=== PATIENT | male | born 1935 | race Caucasian/White ===

== ENCOUNTER 2016-10-05 11:52 | Emergency (ER) | payer MEDICARE ==
--- NOTE | 2016-10-05 14:43 | UC ---
David Koroma Alok, scribed for Navi Bishop MD on 10/05/16 at 1314 . Lower Extremity/Ankle HPI - HPI Summary HPI Summary: 80M presents to the [facility] with ecchymosis and edema on the back on his left knee. Pt states he fell 5 days ago at the table and hit the back of his knee on a chair while getting up. Pt notes left knee tenderness since yesterday. PMHx includes CAD, HTN, and stents. Pt has been taking Brilinta since Apr 2016. Pt also takes aspirin. Pt drinks ETOH daily. - History of Current Complaint Chief Complaint: UCLowerExtremity Stated Complaint: BRUISING,BLOOD THINNER Time Seen by Provider: 10/05/16 12:59 Hx Obtained From: Patient Onset/Duration: Gradual Onset, Lasting Days, Still Present Severity Initially: Moderate Severity Currently: Moderate Pain Intensity: 2 Pain Scale Used: 0-10 Numeric Alleviating Factor(s): Nothing - Allergies/Home Medications Allergies/Adverse Reactions: Allergies Allergy/AdvReac Type Severity Reaction Status Date / Time No Known Allergies Allergy Verified 10/05/16 12:44 Home Medications: Home Medications Alfuzosin HCl [Alfuzosin HCl ER] 10 mg PO DAILY 10/05/16 [History Confirmed ] Amlodipine Besylate [Norvasc 2.5 mg tab] 2.5 mg PO DAILY 10/05/16 [History Confirmed 10/05/16] Benzonatate [Benzonatate 200 MG CAP] 200 mg PO TID PRN 10/05/16 [History Confirmed 10/05/16] Coenzyme Q10 (Ubidecarenone) [Coq-10] 200 mg PO DAILY 10/05/16 [History Confirmed 10/05/16] Rosuvastatin Calcium [Crestor] 5 mg PO DAILY 10/05/16 [History Confirmed ] guaiFENesin/CODIEN 100MG-10MG* [Robitussin AC 100Mg-10Mg*] 5 ml PO QID PRN 10/05 [History Confirmed 10/05/16] PMH/Surg Hx/FS Hx/Imm Hx Endocrine History Of: Denies: Diabetes, Thyroid Disease, Hyperthyroidism, Hypothyroidism, Dyslipidemia Cardiovascular History Of: Reports: Cardiac Disorders - cardiac stents 04/27, Hypertension Denies: Pacemaker/ICD, Myocardial Infarction, Congestive Heart Failure, Atrial Fibrillation, Deep Vein Thrombosis, Bleeding Disorders Respiratory History Of: Denies: COPD, Asthma, Bronchitis, Pneumonia, Pulmonary Embolism GI/ History Of: Reports: Gastroesophageal Reflux Denies: Ulcer, Gastrointestinal Bleed, Gall Bladder Disease, Kidney Stones, Diverticulitis, Renal Disease, Urosepsis Neurological History Of: Denies: TIA, CVA, Dementia, Seizures, Migraine Psychological History Of: Reports: Anxiety - ON MEDICATION FOR Denies: Depression, Bipolar Disorder, Schizophrenia, Post Traumatic Stress Disorder Cancer History Of: Denies: Lung Cancer, Colorectal Cancer, Breast Cancer, Prostate Cancer, Cervical Cancer Other History Of: Anticoagulant Therapy - 81 mg aspirin every three days. Negative For: HIV, Hepatitis B, Hepatitis C - Surgical History Surgical History: Yes Surgery Procedure, Year, and Place: CARPAL TUNNEL RIGHT- [facility]- [facility] CARPAL TUNNEL LEFT 2011 BILATERAL CATARACT REMOVAL-([facility] SN60WF -MRI SAFE-3T)[facility] TONSILECTOMY,CYST REMOVED FROM BLADDER, L hip replacement - Family History Known Family History: Positive: Hypertension - Social History Occupation: Employed Full-time Alcohol Use: Daily Alcohol Amount: 1 beer Substance Use Type: None Substance Use Comment - Amount & Last Used: 1 BEER/DAY Smoking Status (MU): Former Smoker Amount Used/How Often: 1-2 PPD X 25 YEARS Have You Smoked in the Last Year: No When Did the Patient Quit Smoking/Using Tobacco: 30 YEARS AGO - Immunization History Most Recent Influenza Vaccination: 2016 Most Recent Tetanus Shot: within 3 years Most Recent Pneumonia Vaccination: within 3 years Review of Systems Constitutional: Negative Skin: Bruising - back of left knee Musculoskeletal: Edema - back of left knee, Other: - back of left knee tenderness All Other Systems Reviewed And Are Negative: Yes Physical Exam Triage Information Reviewed: Yes Appearance: Well-Appearing, No Pain Distress, Well-Nourished Vital Signs: Initial Vital Signs Temp 98.1 F 10/05/16 12:51 Pulse 58 10/05/16 12:51 Resp 16 10/05/16 12:51 BP 131/62 10/05/16 12:51 Pulse Ox 98 10/05/16 12:51 ENT: Positive: Normal ENT inspection Neck: Positive: Nontender Respiratory: Positive: Lungs clear, Normal breath sounds Cardiovascular: Positive: RRR, Brisk Capillary Refill Musculoskeletal: Positive: Strength Intact, ROM Intact, Other: - minimal swelling/bruising medial left popliteal area and left lower thigh area. No cellulitis, no knee effusion. Neurological: Positive: Alert Psychological: Positive: Age Appropriate Behavior Skin: Negative: rashes, breakdown Diagnostics - Laboratory Diagnostic Studies Completed/Ordered: Left Lower Extremity Veins US - Results pending Lower Extremity Course/Dx - Course Course Of Treatment: 80 yr old male with likely small hematoma. Venous doppler ordered. - Differential Dx/Diagnosis Provider Diagnoses: hematoma. Contusion Discharge - Discharge Plan Condition: Good Disposition: OTHER Discharge Disposition Comment: signed out to Dr Loza with Venous Doppler pending and final dispo Patient Education Materials: Hematoma (ED), Contusion in Adults (ED) Referrals: Garrick Urrutia MD [Primary Care Provider] - The documentation as recorded by the David galeas Alok accurately reflects the service I personally performed and the decisions made by Edna higuera Walter, MD.
--- NOTE | 2016-10-05 15:01 | RAD ---
HISTORY: Fall, bruising of left medial thigh, pain and edema COMPARISONS: None relevant TECHNIQUE: Multiple transverse and longitudinal ultrasound images were obtained of the left lower extremity from the level of the common femoral vein inferiorly through to the infrapopliteal veins using grayscale, color Doppler, and spectral Doppler imaging with and without compression and with augmentation. Comparison images were obtained of the contralateral common femoral vein. FINDINGS: VEINS: The venous system of the left lower extremity is compressible throughout its course, with normal flow on color Doppler imaging and normal response to augmentation on spectral Doppler imaging. SOFT TISSUES: There is no appreciable sonographic abnormality in the area of bruising. OTHER FINDINGS: None. IMPRESSION: NO LEFT LOWER EXTREMITY DEEP VEIN THROMBOSIS
[2016-10-05 15:25] VITALS: BP 126/69
== END 2016-10-05 15:32 | disposition home or self-care (01) ==
LOC: UCEAST 11:52
DX: S80.02XA Contusion of left knee, initial encounter (principal); W18.00XA Striking against unspecified object with subsequent fall, initial encounter; Y93.9 Activity, unspecified; Y92.9 Unspecified place or not applicable; I10 Essential (primary) hypertension; K21.9 Gastro-esophageal reflux disease without esophagitis; F41.9 Anxiety disorder, unspecified; Z79.82 Long term (current) use of aspirin; Z95.5 Presence of coronary angioplasty implant and graft; Z98.42 Cataract extraction status, left eye; Z98.41 Cataract extraction status, right eye; Z96.642 Presence of left artificial hip joint; Z87.891 Personal history of nicotine dependence
CPT/HCPCS: 99212; G0463

== ENCOUNTER 2017-02-15 08:58 | Emergency (ER) | payer MEDICARE ==
[2017-02-15 09:17] VITALS: BP 185/81
--- NOTE | 2017-02-15 09:32 | UC ---
Dizzy HPI HPI Summary: ONSET OF LIGHTHEADEDNESS LAST NIGHT AFTER DINNER. FEELS LIKE HE CAN'T GET HIS FEET WHERE THEY NEED TO BE. BALANCE IS OFF. HAD SOME NAUSEA BUT DENIES FEVER, SOB, CHEST PAIN, SWEATS. NO SPINNING SENSATION. - History Of Current Complaint Chief Complaint: UCDizziness Stated Complaint: DIZZINESS Time Seen by Provider: 02/15/17 09:00 Hx Obtained From: Patient, Family/Communication Specialist - Onset/Duration: Gradual Onset, Lasting Hours, Still Present Timing: Constant Severity Initially: Moderate Severity Currently: Moderate Pain Intensity: 0 Pain Scale Used: 0-10 Numeric Character: Lightheaded Aggravating Factor(s): Nothing Alleviating Factor(s): Nothing Associated Signs And Symptoms: Positive: Nausea, Unsteady Gait. Negative: Diaphoresis, Chest Pain, SOB - Allergies/Home Medications Allergies/Adverse Reactions: Allergies Allergy/AdvReac Type Severity Reaction Status Date / Time No Known Allergies Allergy Verified 02/15/17 09:08 Home Medications: Home Medications Iron 325 mg PO BID 02/15/17 [History Confirmed 02/15/17] PMH/Surg Hx/FS Hx/Imm Hx Cardiovascular History: Cardiac Disease, Hypertension Other History Of: Anticoagulant Therapy - 81 mg aspirin every three days. Negative For: HIV, Hepatitis B, Hepatitis C - Surgical History Surgical History: Yes Surgery Procedure, Year, and Place: CARPAL TUNNEL RIGHT- [facility]- [facility] CARPAL TUNNEL LEFT 2011 BILATERAL CATARACT REMOVAL-([facility] SN60WF -MRI SAFE-3T)[facility] TONSILECTOMY,CYST REMOVED FROM BLADDER, L hip replacement - Family History Known Family History: Positive: Hypertension - Social History Alcohol Use: Daily Alcohol Amount: 1 beer Substance Use Type: None Substance Use Comment - Amount & Last Used: 1 BEER/DAY Smoking Status (MU): Former Smoker Amount Used/How Often: 1-2 PPD X 25 YEARS Have You Smoked in the Last Year: No When Did the Patient Quit Smoking/Using Tobacco: 30 YEARS AGO - Immunization History Most Recent Influenza Vaccination: 2016 Most Recent Tetanus Shot: within 3 years Most Recent Pneumonia Vaccination: within 3 years Review of Systems Constitutional: Negative ENT: Negative Respiratory: Negative Cardiovascular: Negative Gastrointestinal: Nausea Neurological: Other - LIGHTHEADED All Other Systems Reviewed And Are Negative: Yes Physical Exam Triage Information Reviewed: Yes Appearance: Well-Appearing, No Pain Distress, Well-Nourished Vital Signs: Initial Vital Signs Temp 97.2 F 02/15/17 09:01 Pulse 68 02/15/17 09:01 Resp 18 02/15/17 09:01 BP 185/81 02/15/17 09:01 Pulse Ox 97 02/15/17 09:01 Vital Signs Reviewed: Yes Eyes: Positive: Conjunctiva Clear ENT: Positive: Hearing grossly normal Neck: Positive: Supple, Nontender, No Lymphadenopathy Respiratory Exam: Normal Cardiovascular Exam: Normal Abdomen Description: Positive: Soft Musculoskeletal: Positive: No Edema Neurological: Positive: Alert Psychological: Positive: Age Appropriate Behavior Skin: Negative: rashes Diagnostics - EKG Cardiac Rate: NL - 63BPM Cardiac Rhythm: Sinus: Normal Ectopy: None ST Segment: Normal Dizzy Course/Dx - Course Course Of Treatment: TO [facility] BY PRIVATE CAR - Differential Dx/Diagnosis Provider Diagnoses: LIGHTHEADED Discharge - Discharge Plan Condition: Stable Disposition: OTHER Discharge Disposition Comment: TO [facility] BY PRIVATE CAR Patient Education Materials: Lightheadedness (ED) Referrals: Garrick Urrutia MD [Primary Care Provider] - If Needed Additional Instructions: GO DIRECTLY TO THE [facility] FROM HERE FOR FURTHER EVALUATION.
== END 2017-02-15 09:29 ==
LOC: UCEAST 08:58
DX: R42 Dizziness and giddiness (principal); Z87.891 Personal history of nicotine dependence
CPT/HCPCS: 93005; 99212; G0463

== ENCOUNTER 2017-02-15 09:49 | Observation (INO) | payer MEDICARE ==
[2017-02-15 11:55] LABS: Hematocrit 33 % (42-52); Hemoglobin 10.9 g/dl (14.0-18.0); Mean Corpuscular HGB Conc 33 g/dl (31-36); Mean Corpuscular Hemoglobin 30 pg (27-31); Mean Corpuscular Volume 90 fL (80-94); Mean Platelet Volume 10 um3 (7.4-10.4); Red Blood Count 3.63 10^6/ul (4.0-5.4); Red Cell Distribution Width 14 % (10.5-15); White Blood Count 5.7 10^3/ul (3.5-10.8)
[2017-02-15 12:06] LABS: Urine Bilirubin Negative (Negative); Urine Glucose Negative (Negative); Urine Nitrite Negative (Negative)
[2017-02-15 12:15] LABS: Albumin 3.8 g/dL (3.2-5.2); BUN/Creatinine Ratio 23.9 (8-20); Calcium 9.4 mg/dL (8.6-10.3); EGFR African American 76.8 (>60); EGFR Non-African American 59.7 (>60); Globulin 2.4 g/dL (2-4); Potassium 4.6 mmol/L (3.5-5.0); Total Bilirubin 0.4 mg/dL (0.2-1.0); Total Protein 6.2 g/dL (6.4-8.9)
[2017-02-15 12:16] LABS: Troponin I 0.01 ng/mL (<0.04)
--- NOTE | 2017-02-15 12:21 | RAD ---
Indication: Lightheaded, unsteady gait, hypertension. Feels intoxicated. Comparison: No relevant prior exams available on the [facility] PACS for comparison. Technique: Noncontrast CT vertex of skull through foramen magnum. Report: 2.3 x 1.7 cm extra-axial water density lesion at the anterior inferior RIGHT posterior fossa consistent with an arachnoid cyst. Only mild associated mass effect on the RIGHT inferior cerebellar hemisphere. No additional extra or intra-axial lesions evident. Negative for sam matter white matter obscuration or mass effect. Negative for intra or extra-axial hemorrhage. Unremarkable cerebral sulci and ventricles. Negative for effacement of the basal cisterns. Unremarkable orbital contents. No calvarial or skull base lesions evident. Clear visualized paranasal sinuses and mastoid air spaces. Unremarkable scalp. IMPRESSION: 1. 2.3 x 1.7 cm extra-axial water density lesion at the anterior inferior RIGHT posterior fossa consistent with an arachnoid cyst. Only mild associated mass effect on the RIGHT inferior cerebellar hemisphere. 2. No acute intracranial process evident.
[2017-02-15] MEDS ORDERED: Aspirin TAB* 325 MG PO ONE (14:11)
--- NOTE | 2017-02-15 14:47 | ED ---
Fabrizio Koroma Angela, scribed for Navi Bishop MD on 02/15/17 at 1052 . Hypertension - HPI Summary HPI Summary: This pt is a 81 y/o male accompanied by partner presenting to [facility] referred by [facility] c/o unsteady gait since noon yesterday (almost 24 hours now). Pt reports he is off balance while ambulating with associated symptoms of light- headedness. Pt states he does not go to one side more than the other. He denies room spinning. Pt denies visual changes, changes in speech, decreased hearing, ringing in ear, weakness or numbness in LE or UE, headache, ear pain, chest pain , SOB, abd pain, neck pain, back pain. Per partner, when laying down last night pt was very dizzy and unsteady. Pt walked into the ED today and notes his off- balanced gait was subtle. Per triage note, pt was referred from [facility] for hypertension and unsteady gait. PMHx: CAD, HTN, high cholesterol. Pt denies PMHx of afib. PSHx: cardiac stents, left hip replacement (2015). - History of Current Complaint Chief Complaint: EDGeneral Stated Complaint: LIGHTHEADED/HIGH BP Time Seen by Provider: 02/15/17 10:24 Hx Obtained From: Patient Onset/Duration: Started Hours Ago Timing: Lasting Hours Associated Signs & Symptoms: Other: - light-headedness - Risk Factors Cardiac Risk Factors: Hypertension, CAD - Allergies/Home Medications Allergies/Adverse Reactions: Allergies Allergy/AdvReac Type Severity Reaction Status Date / Time No Known Allergies Allergy Verified 02/15/17 09:08 Home Medications: Home Medications Alfuzosin ER (NF) [Uroxatral (NF)] 10 mg PO DAILY 02/15/17 [History Confirmed ] Ascorbic Acid TAB* [Vitamin C TAB*] 1,000 mg PO DAILY 02/15/17 [History Confirmed 02/15/17] Carbamide Peroxide 6.5% OTIC* [DEBROX 6.5% Otic*] 4 drop LEFT EAR BID 02/15/17 [ History Confirmed 02/15/17] Ferrous Sulfate TAB* 325 mg PO BID 02/15/17 [History Confirmed 02/15/17] Lisinopril/HCTZ 20/12.5(NF) [Zestoretic 20/12.5(NF)] 1 tab PO DAILY 02/15/17 [ History Confirmed 02/15/17] [place]-3 Fatty Acids (Nf) [Fish Oil (NF)] 1,000 mg PO DAILY 02/15/17 [History Confirmed 02/15/17] Rosuvastatin (NF) [Crestor (NF)] 5 mg PO DAILY 02/15/17 [History Confirmed 02/15] Triamcinolone 0.1% CREAM (NF) [Kenalog 0.1% Cream (NF)] 1 applic TOPICAL BID 10/27 [History Confirmed 02/15/17] amLODIPine TAB* [Norvasc 5 mg TAB*] 2.5 mg PO DAILY 02/15/17 [History Confirmed 02/15/17] PMH/Surg Hx/FS Hx/Imm Hx Endocrine/Hematology History: Reports: Hx Anticoagulant Therapy - 81 mg aspirin every three days. Denies: Hx Diabetes, Hx Sickle Cell Disease, Hx Thyroid Disease Cardiovascular History: Reports: Hx Hypertension Denies: Hx Congestive Heart Failure, Hx Deep Vein Thrombosis, Hx Myocardial Infarction, Hx Pacemaker/ICD, Other Cardiovascular Problems/Disorders Respiratory History: Reports: Hx Sleep Apnea - DENTAL DEVICE USED Denies: Hx Asthma, Hx Chronic Obstructive Pulmonary Disease (COPD), Hx Lung Cancer, Hx Pneumonia, Hx Pulmonary Embolism GI History: Denies: Hx Gall Bladder Disease, Hx Gastrointestinal Bleed, Hx Ulcer, Hx Urosepsis, Other GI Disorders History: Reports: Hx Benign Prostatic Hyperplasia - flomax Denies: Hx Kidney Stones, Hx Renal Disease, Other Problems/Disorders Musculoskeletal History: Reports: Hx Arthritis - GENERALIZED, Hx Back Problems - lumbar stenosis, Hx Tendonitis - HX, Other Musculoskeletal History - Polymyalgia Rheumatica Sensory History: Reports: Hx Cataracts, Hx Contacts or Glasses, Hx Hearing Aid Opthamlomology History: Reports: Hx Cataracts, Hx Contacts or Glasses Neurological History: Reports: 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 Denies: Hx Dementia, Hx Migraine, Hx Seizures, Hx Transient Ischemic Attacks (TIA) Psychiatric History: Reports: Hx Anxiety - ON MEDICATION FOR Denies: Hx Depression, Hx Panic Disorder, Hx Schizophrenia, Hx Bipolar Disorder - Surgical History Surgery Procedure, Year, and Place: CARPAL TUNNEL RIGHT- [facility]- [facility] CARPAL TUNNEL LEFT 2011 BILATERAL CATARACT REMOVAL-([facility] SN60WF -MRI SAFE-3T)[facility] TONSILECTOMY,CYST REMOVED FROM BLADDER, L hip replacement Hx Anesthesia Reactions: No - Immunization History Date of Tetanus Vaccine: Unk Date of Influenza Vaccine: Fall 2013 Infectious Disease History: Yes Infectious Disease History: Denies: Hx Clostridium Difficile, Hx Hepatitis, Hx Human Immunodeficiency Virus (HIV), Hx of Known/Suspected MRSA, Hx Shingles, Hx Tuberculosis, Hx Known/ Suspected VRE, Hx Known/Suspected VRSA, History Other Infectious Disease, Traveled Outside the [place] in Last 30 Days - Family History Known Family History: Positive: Hypertension - Social History Alcohol Use: Daily Alcohol Amount: 1 beer Substance Use Type: Reports: None Substance Use Comment - Amount & Last Used: 1 BEER/DAY Smoking Status (MU): Former Smoker Amount Used/How Often: 1-2 PPD X 25 YEARS Have You Smoked in the Last Year: No Review of Systems Negative: Fever, Chills Negative: Blurred Vision, Other - visual changes Negative: Ear Ache, Other - decreased hearing Negative: Chest Pain Negative: Shortness Of Breath Negative: Abdominal Pain Negative: Other - back pain Neurological: Other - off balance while ambulating, light-headedness Negative: Headache, Weakness, Numbness, Slurred Speech - changes in speech All Other Systems Reviewed And Are Negative: Yes Physical Exam Triage Information Reviewed: Yes Vital Signs On Initial Exam: Initial Vitals Temp Pulse Resp BP Pulse Ox 96.9 F 63 16 174/80 98 02/15/17 09:50 02/15/17 09:50 02/15/17 09:50 02/15/17 09:50 02/15/17 09:50 Vital Signs Reviewed: Yes Appearance: Positive: Well-Appearing, No Pain Distress Skin: Positive: Warm, Skin Color Reflects Adequate Perfusion Head/Face: Positive: Normal Head/Face Inspection Eyes: Positive: EOMI ENT: Positive: Normal ENT inspection, TMs normal Neck: Positive: Supple, Nontender Respiratory/Lung Sounds: Positive: Clear to Auscultation, Breath Sounds Present Cardiovascular: Positive: RRR. Negative: Murmur Abdomen Description: Positive: Nontender Musculoskeletal: Positive: Strength/ROM Intact Neurological: Positive: Sensory/Motor Intact, Alert, Oriented to Person Place, Time, CN Intact II-III, Reflexes Intact - bilateral upper and lower, Babinski Left - downgoing, Babinski Right - downgoing, Finger to Nose - normal, Speech Normal - [place] Coma Scale Coma Scale Total: 15 Diagnostics - Vital Signs Vital Signs Temp Pulse Resp BP Pulse Ox 02/15/17 09:50 96.9 F 63 16 174/80 98 - Laboratory Result Diagrams: 02/15/17 11:30 02/15/17 11:30 Lab Statement: Any lab studies that have been ordered have been reviewed, and results considered in the medical decision making process. - CT Brain CT CT Interpretation: Positive (See Comments) - IMPRESSION: 1. 2.3 x 1.7 cm extra- axial water density lesion at the anterior inferior RIGHT posterior fossa consistent with an arachnoid cyst. Only mild associated mass effect on the RIGHT inferior cerebellar hemisphere. 2. No acute intracranial process evident. ED physician has reviewed this radiology report and agrees. CT Interpretation Completed By: Radiologist - EKG 1122 Cardiac Rate: Bradycardia - 59 bpm EKG Rhythm: Sinus Rhythm EKG Interpretation: Prolonged CT interval. No STEMI. Hypertension Course/Dx - Course Course Of Treatment: 81 yr old with gait disturbance. MRI, Neuro consult. CT brain shows 1. 2.3 x 1.7 cm extra-axial water density lesion at the anterior inferior RIGHT posterior fossa consistent with an arachnoid cyst. Only mild associated mass effect on the RIGHT inferior cerebellar hemisphere. 2. No acute intracranial process evident. - Diagnoses Provider Diagnoses: Ataxia - Physician Notifications Discussed Care Of Patient With: Hugo Gates Time Discussed With Above Provider: 11:37 Instructed by Provider To: Other - I discussed the pt's case with Dr. Gates, neuro. He will come see the pt in the ED. 1311: I discussed the case wtih Dr. Oswaldo Healy, who has agreed to accept the pt for admission. Discharge - Discharge Plan Condition: Good Disposition: ADMITTED TO [facility] Referrals: Garrick Urrutia MD [Primary Care Provider] - The documentation as recorded by the Fabrizio galeas Angela accurately reflects the service I personally performed and the decisions made by me, Navi Bishop MD.
[2017-02-15] MEDS ORDERED: Lisinopril/HCTZ 20/12.5(NF) TAB PO SCH (15:00)
[2017-02-15] MEDS ORDERED: Aspirin Low Dose CHEW TAB* 81 MG PO SCH (15:00)
[2017-02-15] MEDS ORDERED: Enoxaparin(*) 40 MG/0.4 ML SYR SUBCUT SCH (15:00)
--- NOTE | 2017-02-15 15:58 | RAD ---
HISTORY: Ataxia COMPARISONS: CT chest dated August 28, 2016 TECHNIQUE: The following sequences were obtained of the thoracic spine: Sagittal T1 and T2-weighted images, sagittal STIR images, coronal T2-weighted images, and axial T2-weighted images. . FINDINGS: Localization is based on counting from C2 SPINAL CORD, CONUS, AND CAUDA EQUINA: The visualized spinal cord, conus, and cauda equina are normal in caliber, position, and signal intensity. ALIGNMENT: There is a levoscoliotic curvature of the spine. VERTEBRAL BODIES: There is multilevel bridging anterolateral marginal osteophyte formation. JOINTS: There is osteoarthritis of the costovertebral and facet joints, most pronounced at T10-T11. MUSCULATURE: There is mild atrophy of the multifidus and erector spinae INTERVERTEBRAL DISCS: There is diffuse loss of intervertebral disc height and T2 signal throughout the spine. AXIAL IMAGES: At T10-T11, there is moderate to severe narrowing of central canal secondary to disc bulging and facet and ligamentous of atrophy. There is severe bilateral neuroforaminal narrowing. Elsewhere, there is no significant posterior frontal or central canal stenosis. SOFT TISSUES: The visualized soft tissues of the chest and upper abdomen are unremarkable. OTHER: None. IMPRESSION: 1. DEGENERATIVE DISC DISEASE AND OSTEOARTHRITIS, MOST PRONOUNCED AT T10-T11. 2. THERE IS MODERATE TO SEVERE NARROWING OF THE CENTRAL CANAL WITH SEVERE BILATERAL NEURAL FORAMINAL NARROWING AT T10-T11.
--- NOTE | 2017-02-15 16:05 | RAD ---
HISTORY: Ataxia COMPARISONS: CT mammogram dated January 04, 2016 TECHNIQUE: The following sequences were obtained of the lumbar spine: Sagittal and axial T1- and T2-weighted images, coronal T2-weighted images, and sagittal STIR images. FINDINGS: SPINAL CORD, CONUS, AND CAUDA EQUINA: The visualized spinal cord, conus, and cauda equina are normal in caliber, position, and signal intensity. ALIGNMENT: There is a levoscoliotic curvature of the spine. There is grade 1 anterolisthesis of L4 on L5. VERTEBRAL BODIES: There is multilevel lateral marginal osteophyte formation. There are diffuse Modic type II changes with mild Modic type I changes at L5-S1 and L3-L4. JOINTS: There is diffuse facet osteoarthritis. MUSCULATURE: There is mild fatty infiltration INTERVERTEBRAL DISCS: There is diffuse loss of intervertebral disc height and T2 signal throughout the spine. AXIAL IMAGES: T12-L1: There is no disc herniation, spinal stenosis, or neuroforaminal narrowing. L1-L2: There is mild disc bulge at bilateral facet hypertrophy. There is mild narrowing of the central canal. There is no significant neural foraminal narrowing. L2-L3: There is broad-based disc bulge with ligamentous and facet hypertrophy. There is marginal osteophyte formation at the neural foramina bilaterally. There is severe right and moderate left neuroforaminal narrowing. There is severe narrowing of the central canal. L3-L4: There is broad-based disc bulge with ligamentous and facet hypertrophy. There is severe bilateral neuroforaminal narrowing. There is severe narrowing of the central canal. L4-L5: There is a broad-based disc bulge/rolled disc with facet and ligamentous hypertrophy. There is severe bilateral neuroforaminal narrowing. There is severe narrowing of the central canal. L5-S1: There is bilateral facet hypertrophy. There is marginal osteophyte formation at the neuroforamina bilaterally. There is moderate to severe bilateral neuroforaminal narrowing. There is moderate narrowing of the central canal. SOFT TISSUES: The visualized soft tissues of the abdomen are unremarkable. OTHER: None. IMPRESSION: 1. SCOLIOSIS. 2. DEGENERATIVE DISC DISEASE AND OSTEOARTHRITIS. 3. THERE IS SEVERE NARROWING OF THE CENTRAL CANAL AT L2-L3, L3-L4, L4-L5, AND TO LESSER EXTENT AT L5-S1. 4. THERE IS MULTILEVEL NEURAL FORAMINAL NARROWING DESCRIBED ABOVE
--- NOTE | 2017-02-15 16:18 | RAD ---
INDICATION: Ataxia COMPARISON: None TECHNIQUE: Coronal T2, sagittal T1, inversion recovery, T2, and axial T1, T2, and gradient echo images were acquired. FINDINGS: The sella and craniocervical junction appear unremarkable. There are no intrinsic abnormalities of the cord. There is mild degree of reversal of the normal cervical lordosis. The atlantodental interval is normal. Axial view images: Less otherwise specified below there is no significant central canal stenosis or neural foraminal stenosis. C2-C3: There is no significant central canal or neural foraminal stenoses. C3-C4: Broad-based disc protrusion eccentric towards the left combines with facet arthropathy to cause mild left of midline central canal stenosis, moderate left and mild right neural foraminal stenosis. C4-C5: Mild broad-based disc protrusion and facet arthropathy do not yield any significant central or neural foraminal stenosis. C5-C6: Disc protrusion eccentric to the left of midline causes mild central canal stenosis moderate left and no significant right neural foraminal stenosis. C6-C7: There is no significant central canal or neural foraminal stenoses. C7-T1: Broad-based disc protrusion combines with facet arthropathy and mild thickening of the ligamentum flavum to cause a very mild degree of neural foraminal stenosis. IMPRESSION: Multilevel degenerative changes of the cervical spine most severely affecting C3/C4 and C5/C6.
--- NOTE | 2017-02-15 16:54 | HP ---
CC: Dr. Urrutia HISTORY AND PHYSICAL: DATE OF ADMISSION: 02/15/17 PRIMARY CARE PHYSICIAN: Dr. Urrutia. CHIEF COMPLAINT: Problems with equilibrium. HISTORY OF PRESENT ILLNESS: Mr. King is a pleasant 81-year-old male with a past medical history of hypertension; hyperlipidemia; CAD, status post PCI x2; GERD; peripheral vascular disease; iron defi ciency anemia, who presents to the hospital with problems with walking and coordination. The patien t states he was in his usual state of health until yesterday, in the late afternoon or evening, he b rosmery to notice he has some difficulty walking and feeling weak, he was off balance. He said he feel s like he was drunk, though he had not had any alcohol. Denies blurry vision, but felt like he had difficulty focusing. No lightheadedness or weakness, or numbness or tingling. He just felt like hi s coordination was off. His significant other who is in the room did not notice any slurred speech. He had no difficulty swallowing. He has had no history of this in the past. This persisted today , so the patient decided to come to the hospital for further evaluation. He feels like he has been improving; however, still does not feel back to baseline. He denies any recent fever, chills, or dale st pain. He has had some ongoing shortness of breath since being started on Brilinta after his cath eterization last April. He had some associated nausea with these symptoms, but no emesis. No ab dominal pain. No hematuria. Stool is black from iron supplementation. The patient was evaluated i n the emergency department by Dr. Bishop and Dr. Gates, and Dr. Gates felt the patient should be admitted to the hospital for further workup. PAST MEDICAL HISTORY: 1. Hypertension. 2. Hyperlipidemia. 3. CAD, status post PCI x2. 4. GERD. 5. Iron deficiency anemia. 6. Peripheral vascular disease. PAST SURGICAL HISTORY: 1. Carpal tunnel release. 2. Cataract surgery. 3. Tonsillectomy. 4. Bladder cyst removal. 5. Left hip replacement. 6. Lymph node resection when the patient was younger. HOME MEDICATIONS: 1. Alfuzosin 10 mg by mouth daily. 2. Brilinta 90 mg by mouth 2 times daily. 3. Amlodipine 2.5 mg by mouth daily. 4. Debrox 4 drops in the left ear 2 times daily. 5. Coenzyme Q 200 mg by mouth daily. 6. Rosuvastatin 5 mg by mouth daily. 7. [place]-3 fatty acids 1000 mg by mouth daily. 8. Ferrous sulfate 325 mg by mouth 2 times daily. 9. Lisinopril/HCTZ 20/12.5 one tablet by mouth daily. 10. Nitroglycerin 0.5 mg sublingual every 5 minutes as needed for chest pain. 11. Aspirin 81 mg by mouth daily. 12. Omeprazole 20 mg by mouth daily. 13. Vitamin C 1000 mg by mouth daily. 14. Triamcinolone 1 application topical 3 times daily. ALLERGIES: The patient has no known drug allergies. FAMILY HISTORY: Significant for father with hypertension and mother with hypotension. SOCIAL HISTORY: The patient was a former smoker, quit about 30 years ago after a [id number]-[id number] hi story; states he smoked about a pack per day. He states he drinks 1 beer per day. Denies any illic it drug use. REVIEW OF SYSTEMS: A 12-point review of systems is negative except for that is known in the HPI. PHYSICAL EXAMINATION GENERAL: The patient is an elderly man, lying in bed, in no apparent distress. VITAL SIGNS: On admission, temperature 96.9, heart rate of 63, respiratory rate of 16, O2 saturatio n 98% on room air, blood pressure 174/80. HEENT: Head: Normocephalic, atraumatic. Eyes: Pupils are equal, round, and reactive to light and accommodation. Anicteric sclerae. ENT: Moist mucous membranes. No cervical adenopathy. LUNGS: Clear to auscultation bilaterally. No wheezes, rales, or rhonchi. CARDIOVASCULAR: Regular rate and rhythm. S1 and S2 present. No murmurs, gallops, or rubs. ABDOMEN: Soft, nontender, nondistended. Bowel sounds positive. EXTREMITIES: No cyanosis, clubbing, or edema. NEURO: The patient is alert, oriented x3. Cranial nerves II through XII grossly intact. Strength is 5/5 throughout bilateral upper and lower extremities. Sensation is intact and symmetric bilateral ly. I do not appreciate any pronator drift, maybe some slight zfqghb-ce-wgdt deficits in the left h and, but very mild if present. Did not assess gait. DIAGNOSTIC STUDIES/LAB DATA: White blood cell count of 5.7, hemoglobin 10.9, hematocrit of 33, humphrey telets of 159. INR of 0.89. Sodium 134, potassium 4.6, chloride of 105, carbon dioxide 26, BUN of 28, creatinine 1.17, glucose of 105, lactic acid of 0.6. Troponin 0.01. UA negative. EKG: Personally reviewed shows sinus bradycardia, Q waves in III and aVF. CT of the brain shows posterior fossa arachnoid cyst, which is not new. Also, reports only mild ass ociated mass effect in the right inferior cerebellar hemisphere. No acute intracranial process evid ent. ASSESSMENT AND PLAN: Ataxia in an 81-year-old male with the past medical history of hypertension; h yperlipidemia; coronary artery disease, status post percutaneous coronary intervention x2; gastroeso phageal reflux disease; iron deficiency anemia; peripheral vascular disease. 1. Ataxia. The patient was evaluated by Dr. Gates. He recommends an MRI of the lumbar spine, ce rvical spine, and thoracic spine without contrast, all of which have been ordered. We will touch ba se with him to see if he wanted an MRI of the brain as well. We will continue the patient's aspirin , Brilinta. We will check a fasting lipid profile. Continue his home statin for now. We will also discuss with Dr. Gates if he wants an echocardiogram as part of a possible stroke workup. We will monitor the patient on telemetry. 2. Hypertension. Continue the patient's home lisinopril/HCTZ and amlodipine. 3. Coronary artery disease. Continue aspirin and Brilinta, and statin. 4. Gastroesophageal reflux disease. Continue home PPI. 5. Iron deficiency anemia. Hemoglobin seems to be above baseline. Continue the patient's home iro n. 6. DVT prophylaxis, Lovenox subcu. 7. Code status. The patient is full code. TIME SPENT: Total time spent on this admission was 45 minutes, more than half the time spent face-t o-face with the patient in counseling and coordinating care. [id number]/[facility] #: [id number]
[2017-02-15] MEDS: Ticagrelor* 90 MG TAB PO SCH ×2 (17:00→22:30)
[2017-02-15] MEDS: Hydrochlorothiazide TAB* 25 MG PO SCH (17:00)
[2017-02-15] MEDS: Lisinopril TAB* 10 MG PO SCH (17:01)
[2017-02-15] MEDS: amLODIPine TAB* 5 MG PO SCH (17:01)
--- NOTE | 2017-02-15 20:10 | CONS ---
CC: Dr. Urrutia * CONSULTATION REPORT: DATE OF CONSULT / DICTATION: 02/15/17 PATIENT OF: Dr. Bishop. HISTORY OF PRESENT ILLNESS: This is an 81-year-old man I am asked to evaluate for gait disturbance. He was in his usual state of health up until yesterday midday when he had noticed he was somewhat off balance, there was no specific leg weakness, but he was somewhat unsteady and his legs felt more unsure of himself. They got progressively worse and had more difficulty walking in the evening and this morning, and he came in for further evaluation. There has been no numbness, no change in bowel or bladder. He occasionally has mild neck pain, but there is no significant neck pain at this time. He has had no room spinning, headache, visual changes. No changes in speech. He notes that he was better at 10 o'clock than he was earlier this morning and also last night. There is a clear improvement according to both him and his . Of note, he has been evaluated by Dr. Ernandez for significant lumbar and low thoracic central stenosis and neural foraminal stenosis. His myelograms and lumbar MRI scans here, I am going to review these films. He also has a mild chronic neuropathy with slight imbalance but this is clearly worse. He has a history of coronary artery disease, hypertension, and high cholesterolemia. He is status post cardiac stents, left hip replacement. He has had little bit of lightheadedness. PAST MEDICAL HISTORY: He has a history of hypertension, sleep apnea, and BPH and he is on Flomax for that. He has had history of anxiety. PAST SURGICAL HISTORY: Status post carpal tunnel surgery on the right, left bilateral cataract surgery, status post tonsillectomy, and bladder cyst removal. He is status post left hip replacement. MEDICATIONS: At home, include: 1. Uroxatral 10 mg daily. 2. Amlodipine 2.5 mg daily. 3. Crestor 5 mg daily. 4. Zestoretic 01/05.5 one tab daily. 5. He is also on ascorbic acid 1000 mg daily. 6. Ferrous sulfate 325 b.i.d. 7. He is on aspirin 81 mg every 3 days' time. ALLERGIES: He has no known allergies. FAMILY HISTORY: There is family history for hypertension. SOCIAL HISTORY: He drinks 1 beer a day. He is a former smoker 1 to 2 packs a day for 25 years. He does not use any drugs. REVIEW OF SYSTEMS: Negative in all 14 spheres other than the HPI. PHYSICAL EXAM: Temperature 98, pulse 73, respirations 14, blood pressure 190/ 81. He is alert, oriented with normal speech, comprehension. Cranial nerves II through XII intact. Discs were sharp. There was no nystagmus. Motor exam revealed normal tone and strength. Abaryu-ua-ojhg was intact. No pronator drift. He did have a wide based unsteady gait, but he does not appear in any danger of falling and he walks rapidly and he is only slightly unsteady on turns. Reflexes were 2+ and equal at the knees, trace to 1 at the ankles with downgoing toes. He had intact position sense in his feet as well as light touch throughout. Chest: Clear. Cardiovascular: Regular rate and rhythm. Abdomen: Soft with positive bowel sounds. DIAGNOSTIC STUDIES/LAB DATA: I reviewed his CT scan of his brain, which did show an arachnoid cyst in his right posterior fossa, there is mild mass effect. He knew of this. This has been a longstanding finding for him. I reviewed his lumbar MRI scan from November of 2015, which showed diffuse degenerative disk disease, osteoarthritis with severe central canal narrowing at multiple levels including T10 and T11 with multiple levels of neural foraminal narrowing. He has not had any cervical studies in the past. Labs include white count of 5.7 with hematocrit 33, platelets 159. Normal INR. Normal CMP other than a BUN of 28, total protein 6.2. UA was negative. IMPRESSION AND PLAN: Trung is clinically doing somewhat better than he was earlier. This clinical course could go against an acute neuropathic process such as Guillain-Moran. His reflexes at his knees are brisker than someone you would expect to have who is in their 80s especially somebody with a peripheral neuropathy. I wonder whether given his extensive disk disease and osteophytic disease noted last year on his lumbar MRI scan whether he has myelopathy in his spine that needs to be ruled out most acutely and we are getting an MRI scan of his back. Radiologist called me and they are going to be originally to get the head to make sure he does not have instead a cerebellar stroke. We can instead do this sequentially since at the request of the radiologists, who were getting a sagittal MRI of the entire spine, getting an MRI scan of the cervical spine. Radiologist will locate and decide if there is any evidence of myelopathy at other levels and do that as well. If we do not have a cause noted on spinal MRI scan, then I will speak to Dr. Healy and also the radiologist. We will proceed with brain MRI scan in a timely manner. He does not have any past pointing and I do not think this is likely that this is going to be brain based. I think that the arachnoid cyst is a chronic finding and there is no right-sided ataxia that make me think otherwise, I think that is an incidental finding. Dr. Montano will be taking coverage beginning at 5 tonight and will follow up this patient when needed definitely tomorrow. Thank you for sharing his case. [id number]/[facility] #: [id number] DESTINY
--- NOTE | 2017-02-15 21:23 | RAD ---
HISTORY: Ataxia and lightheadedness COMPARISONS: Same day CT of the brain that did not show any acute abnormalities. TECHNIQUE: The following sequences were obtained of the head: Sagittal T1-weighted images, axial T2-weighted images, axial FLAIR images, axial susceptibility weighted images, axial T1-weighted images. Additionally, axial diffusion-weighted images were obtained with calculated apparent diffusion coefficients.. FINDINGS: HEMORRHAGE/INFARCT: There is no hemorrhage or acute infarct. MASSES/SHIFT: There is no mass or shift. EXTRA-AXIAL SPACES/MENINGES: Just anterior to the inferior right cerebellar lobe is a 2.2 cm fluid density structure corresponding to the arachnoid cyst seen on the previous CT of the brain. There is no edema at the adjacent cerebellum to indicate mass effect. SULCI AND VENTRICLES: The sulci and ventricles are normal in size and position for the patient's stated age. CEREBRUM: There is mild periventricular and scattered subcortical T2 bright foci in the bilateral white matter tracts. There are no focal masses or territorial signal abnormalities. BRAINSTEM: There are no focal parenchymal abnormalities. CEREBELLUM: There are no focal parenchymal abnormalities. The cerebellar tonsils are normal in size and position. SELLA: The sella is normal. PINEAL: The pineal region is clear. CP ANGLE/TEMPORAL BONES: The labyrinthine structures are grossly normal. VESSELS: Normal flow-voids are noted within the visualized vertebral vasculature. DIFFUSION ABNORMALITIES: There are no diffusion abnormalities. PARANASAL SINUSES/MASTOIDS: The paranasal sinuses are clear. ORBITS: The orbits are unremarkable. BONES AND SOFT TISSUE: No bone or soft tissue abnormalities are noted. IMPRESSION: 1. IMMEDIATELY ANTERIOR TO THE RIGHT CEREBELLAR HEMISPHERE IS A 2.2 CM BENIGN-APPEARING SUBARACHNOID CYST. THIS APPEARS TO BE EXERTING MILD COMPRESSION ON THE ADJACENT CEREBELLAR LOW BUT THERE IS NO ABNORMAL SIGNAL INTENSITY IN THE LOBE TO INDICATE EDEMA. 2. 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 IF THERE IS CLINICAL CONCERN FOR DEMYELINATING DISEASE, THIS CAN BE BETTER CHARACTERIZED WITH CONTRAST ENHANCEMENT.
[2017-02-15] MEDS: Ferrous Sulfate TAB* 325 MG PO SCH (22:29)
[2017-02-16 05:55] LABS: HDL Cholesterol 39.8 mg/dL
[2017-02-16] MEDS ORDERED: Omeprazole CAP* 20 MG PO SCH (07:30)
[2017-02-16] MEDS: Lisinopril TAB* 10 MG PO SCH (08:19)
[2017-02-16] MEDS: Ticagrelor* 90 MG TAB PO SCH (08:19)
[2017-02-16] MEDS: Hydrochlorothiazide TAB* 25 MG PO SCH (08:19)
[2017-02-16] MEDS: Ferrous Sulfate TAB* 325 MG PO SCH (08:19)
[2017-02-16] MEDS: amLODIPine TAB* 5 MG PO SCH (08:20)
[2017-02-16] MEDS ORDERED: Aspirin Low Dose CHEW TAB* 81 MG PO SCH (09:00)
[2017-02-16 13:29] VITALS: BP 127/60
--- NOTE | 2017-02-16 20:48 | PN ---
AMENDED REPORT NOW INCLUDES DATE OF SERVICE - ESIGNED BEFORE ADJUSTMENTS CC: Dr. Hugo Gates* FOLLOWUP NOTE: DATE OF SERVICE: 02/16/17 PRIMARY CARE PHYSICIAN: Dr. Hugo Gates. HISTORY OF PRESENT ILLNESS: Mr. Trung King Jr. is an 81-year-old gentleman, who was admitted to [facility] on 02/15/17 with story of an episode of decline in gait that progressively worsened and then got better in the morning of admission. This occurs in the setting of significant risk factors for stroke including coronary artery disease, with cardiac stent; hypertension; high cholesterol; sleep apnea. He also at baseline has severe lumbosacral spinal stenosis as well as hsfsryjo-uc-oobynq narrowing in the thoracic cord with increased reflexes on exam raising question of whether there could be new stroke or myelopathy contributing to his presentation. Dr. Gates saw him in consultation. He went on to have an MRI of the brain, cervical spine, thoracic spine, and lumbosacral spine, which did not show a clear cause for his decline. He does have significant pathology in the thoracic and lumbosacral spine as noted below. However, based on his symptomatology, it did not explain his symptoms. On further history today, he indicates that he had been out on a tractor the day prior to this happening and bouncing quite a bit. The day the symptoms began around noon, he thought he might be a little bit off, but he felt a little different at dinner. He went to play poker and he noticed that he had even worse balance. He was not drinking when playing poker. He felt like he was woozy. His vision might be a little bit off. He went home and he did not feel well and decided to go over and stay with his significant other. Ambriz history he provided is when he lied down, he has felt worse like he was going to vomit. His significant other added that when he would roll over, he would get worse and if he stayed still less than a minute, he would be get better, seemed to be worse when rolling to the left. His symptoms have now resolved. PHYSICAL EXAMINATION: Today, Mr. King's most recent temperature was 98.3 degrees Fahrenheit, his pulse was 55 and regular, respiratory rate was 20, saturation was 96%, blood pressure was 116/56. He had a regular cardiac rhythm. His lungs were clear to auscultation. He was awake, alert, articulate. He had full extraocular movements with no nystagmus. Full contreras to confrontation. His facial expression was symmetric. There was no dysarthria. His palate was upgoing. Tongue was midline. Sternocleidomastoid and trapezius were 5/5 in strength. There was normal bulk and tone with no pronator drift. Normal coordination with akvokw-uf-sybf and umxl-tl-qrwm movements. He had full strength in his upper and lower extremities. Reflexes were 2+ throughout with exception of ankles that were 1+. His Romberg was wobbly. He could walk, however, independently without any evidence of ataxia and could walk on his heels and his toes. DIAGNOSTIC STUDIES/LAB DATA: Includes CBC from initial admission with the white count that was 5.7, hemoglobin and hematocrit were slightly low, and platelets were within normal limits. His metabolic panel showed an elevated BUN at 28, creatinine was normal, BUN and creatinine ratio was elevated. Glucose was 105. His total protein was slightly low at 6.2. His lipid profile showed a triglyceride of 105, cholesterol 125, LDL 64, and HDL 39.8. His urinalysis had low specific gravity, otherwise was benign. He had several MRI imaging, all of these films were reviewed directly and I will refer to the report for detailed information regarding the results. Of note, the MRI of the brain, he did have a 2.2-cm arachnoid cyst near the right cerebellum; however, no significant edema in the cerebellum. There was no evidence of new ischemia. No evidence of bleed and he did have some chronic small vessel ischemic disease in the periventricular area. His MRI of the cervical spine showed degenerative disk disease at multiple levels. There had been no spinal cord injury noted. Thoracic MRI showed blwaiqzp-lf-tgjnbb narrowing particularly at T10 and T11; however, again no intrinsic cord abnormality was noted. MRI of the lumbosacral spine revealed degenerative disk disease and osteoarthritis with severe narrowing at multiple levels and I will refer to the report for details. IMPRESSION AND PLAN: Mr. Trung King Jr. is an 81-year-old gentleman with a history of coronary artery disease, hypertension, high cholesterol, sleep apnea , cardiac stents, severe lumbosacral spinal stenosis and thoracic spinal stenosis, who presented with change in gait. On further history, I was able to obtain a history consistent with benign positional vertigo, which has now resolved. Education was given regarding benign positional vertigo. He is a very active rakel and he certainly may have leaned over prior to his symptoms, but he does not remember. He was, however, on a tractor that was very bouncy, which may have loosened up an otolith. At this point, he is back to his baseline. Given lack of any other pathology found and very clear history, no further workup is indicated. He will be discharged home. TIME SPENT: Over 45 minutes was spent in direct patient care; over 50% of time was spent in education and counseling regarding results of the scan, differential diagnosis, diagnosis, pathophysiology. All questions were answered. Case was also discussed with hospitalist team. [id number]/[facility] #: [id number] DESTINY
[2017-02-16] MEDS ORDERED: Atorvastatin* 10 MG TAB PO SCH (21:00)
--- NOTE | 2017-02-17 17:34 | DS ---
CC: Dr. Urrutia DISCHARGE SUMMARY: ADDENDUM: [id number]/[facility] #: [id number] MTDD
--- NOTE | 2017-02-17 17:34 | DS ---
CC ADDENDUM NOW INCLUDED ON THIS REPORT CC: Dr. Urrutia * DISCHARGE SUMMARY: DATE OF ADMISSION: 02/15/17 DATE OF DISCHARGE: 02/16/17 PRIMARY CARE PHYSICIAN: Dr. Urrutia. PRIMARY DISCHARGE DIAGNOSIS: Benign paroxysmal positional vertigo. SECONDARY DISCHARGE DIAGNOSES: 1. Coronary artery disease, status post percutaneous coronary intervention. 2. Hypertension. 3. Hyperlipidemia. 4. Peripheral vascular disease. 5. Spinal stenosis. 6. Degenerative disk disease. MEDICATIONS: Medication changes made upon discharge: None. HOSPITAL COURSE BY PROBLEM: 1. BPPV. Mr. King was admitted to rule out stroke given his gait instability and reporting of disequilibrium. A brain MRI ruled out acute stroke and thoracic and lumbar MRIs revealed degenerative disk disease and central canal stenosis, but these were not thought to account for his symptoms, as he complained of positional dizziness and nausea. He was evaluated by Neurology, who reviewed all of his studies and agreed that BPPV was most likely, it was completely resolved by the day following admission and he is being discharged home on no medications. 2. DJD and spinal stenosis. He had no neurologic findings and no red flag signs. He was walking in the hallways without any difficulty on the day of discharge. He will follow up with his PCP for ongoing followup for his low back pain. 3. CAD, status post PCI. He was discharged on his home medications of Brilinta , rosuvastatin, and aspirin 81 mg. 4. Hypertension. He is continued on lisinopril/HCTZ and amlodipine. DISPOSITION: The patient was discharged to home, 02/16/17, in fair condition with followup requested for Dr. Urrutia. PHYSICAL EXAMINATION: On 02/16/17, general: Alert, well-appearing man, walking around his room and the hallways, in no distress. HEENT: No nystagmus. Pupils equal, round, and reactive to light. Face symmetric. Neck: No JVP. No cervical adenopathy. Chest: Regular rate and rhythm. No murmurs. PMI nondisplaced. Lungs: Clear bilaterally. Abdomen: Soft, nontender, nondistended. Extremities: No edema. Pulses 2+ throughout. Neurologic: Strength 5/5 in all extremities. No pronator drift. Sensation grossly intact. Cranial nerves II through XII intact. REVIEW OF SYSTEMS: Negative for headache, dizziness, lightheadedness, blurry vision, chest pain, or palpitations. The remainder of 14-point review of systems was negative on the day of discharge. [id number]/[facility] #: [id number] A- [id number]/[facility] #: [id number] DESTINY
== END 2017-02-16 13:05 | disposition home or self-care (01) ==
LOC: ED 09:49 → MEDTELE 13:33
PROVIDERS: ADMIT Hospitalist; ATTEND Internal Medicine
DX: H81.10 Benign paroxysmal vertigo, unspecified ear (principal); R27.0 Ataxia, unspecified; I25.10 Atherosclerotic heart disease of native coronary artery without angina pectoris; I10 Essential (primary) hypertension; Z95.5 Presence of coronary angioplasty implant and graft; E78.5 Hyperlipidemia, unspecified; I73.9 Peripheral vascular disease, unspecified; D50.9 Iron deficiency anemia, unspecified; N40.0 Benign prostatic hyperplasia without lower urinary tract symptoms; R00.1 Bradycardia, unspecified; M51.36 Other intervertebral disc degeneration, lumbar region; M48.061 Spinal stenosis, lumbar region without neurogenic claudication; Z79.899 Other long term (current) drug therapy; Z79.82 Long term (current) use of aspirin; Z87.891 Personal history of nicotine dependence
CPT/HCPCS: 36415; 70450; 70551; 72141; 72146; 72148; 80053; 80061; 81003; 83605; 84484; 85025; 85610; 93005; 96372; 99284; A9270-GY; G0378; J1650

== ENCOUNTER 2017-05-10 15:45 | Emergency (ER) | payer MEDICARE ==
[2017-05-10 16:04] VITALS: BP 148/47
--- NOTE | 2017-05-10 16:47 | UC ---
Ear Complaint HPI - HPI Summary HPI Summary: WENT TO PCP TODAY FOR URI SX. ON EXAM WAS FOUND TO HAVE THE WAX FILTER FROM HIS HEARING AID STUCK IN HIS LEFT EAC. THEY USED ALLIGATOR FORCEPS AND IRRIGATION UNSUCCESSFULLY SO WERE SENT HERE FOR REMOVAL. PT DENIES ANY PAIN, DRAINAGE OR CHANGE IN HEARING. - History of Current Complaint Chief Complaint: UCForeignBody Stated Complaint: FOREIGN BODY IN EAR Time Seen by Provider: 05/10/17 16:16 Hx Obtained From: Patient Severity Currently: None Pain Intensity: 0 Pain Scale Used: 0-10 Numeric Aggravating Factors: Nothing Alleviating Factors: Nothing Associated Signs/Symptoms: Negative: Discharge, Hearing Loss, Foreign Body Sensation, Trauma to Ear, Swelling @ - Allergies/Home Medications Allergies/Adverse Reactions: Allergies Allergy/AdvReac Type Severity Reaction Status Date / Time No Known Allergies Allergy Verified 05/10/17 16:04 Home Medications: Home Medications predniSONE TAB* [Deltasone TAB*] 30 mg PO DAILY 05/10/17 [History Confirmed ] PMH/Surg Hx/FS Hx/Imm Hx Cardiovascular History: Hypertension Other History Of: Anticoagulant Therapy - 81 mg aspirin every three days. Negative For: HIV, Hepatitis B, Hepatitis C - Surgical History Surgical History: Yes Surgery Procedure, Year, and Place: CARPAL TUNNEL RIGHT- [facility] TRIGGER FINGER- [facility] CARPAL TUNNEL LEFT 2011 BILATERAL CATARACT REMOVAL-([facility] SN60WF -MRI SAFE-3T)[facility] TONSILECTOMY,CYST REMOVED FROM BLADDER, L hip replacement, CARDIAC CATH W/ STENTS PLACED - Family History Known Family History: Positive: Hypertension - Social History Alcohol Use: Daily Alcohol Amount: 1 beer Substance Use Type: None Substance Use Comment - Amount & Last Used: 1 BEER/DAY Smoking Status (MU): Former Smoker Amount Used/How Often: 1-2 PPD X 25 YEARS Have You Smoked in the Last Year: No When Did the Patient Quit Smoking/Using Tobacco: 30 YEARS AGO - Immunization History Most Recent Influenza Vaccination: 2016 Most Recent Tetanus Shot: within 3 years Most Recent Pneumonia Vaccination: within 3 years Review of Systems Constitutional: Negative ENT: Other - POSSIBLE FB LEFT EAR Respiratory: Negative Cardiovascular: Negative Gastrointestinal: Negative All Other Systems Reviewed And Are Negative: Yes Physical Exam Triage Information Reviewed: Yes Appearance: Well-Appearing, No Pain Distress, Well-Nourished Vital Signs: Initial Vital Signs Temp 98.9 F 05/10/17 15:57 Pulse 70 05/10/17 15:57 Resp 18 05/10/17 15:57 BP 148/47 05/10/17 15:57 Pulse Ox 99 05/10/17 15:57 Vital Signs Reviewed: Yes Eyes: Positive: Conjunctiva Clear ENT: Positive: Hearing grossly normal, TMs normal, Other - NO FB VISUALIZED IN EITHER EAC Neck: Positive: Supple Respiratory: Positive: No respiratory distress, No accessory muscle use Cardiovascular: Positive: Pulses Normal Abdomen Description: Positive: Soft Musculoskeletal: Positive: No Edema Neurological: Positive: Alert Psychological: Positive: Age Appropriate Behavior Skin: Negative: rashes Ear Complaint Course/Dx - Course Course Of Treatment: NO FB VISUALIZED IN EITHER EAR CANAL. WILL REFER TO ENT FOR CONFIRMATION. - Differential Dx/Diagnosis Provider Diagnoses: SUSPECTED FOREIGN BODY LEFT EAR Discharge - Discharge Plan Condition: Stable Disposition: HOME Patient Education Materials: Ear Foreign Body (ED) Referrals: Garrick Urrutia MD [Primary Care Provider] - If Needed Additional Instructions: NO FOREIGN BODY SEEN IN EITHER EAR CANAL TODAY. THE HEARING AID PIECE MAY HAVE FALLEN OUT AFTER IRRIGATION BY YOUR PCP. CALL ENT FIRST THING NEXT WEEK FOR AN APPT TO CONFIRM PRESENCE OR ABSENCE OF THE PIECE IN YOUR EAR. GO TO THE ER IF YOU DEVELOP PAIN, DISCHARGE FROM THE EAR, CHANGE IN HEARING OR ANY OTHER CONCERNING SYMPTOMS. [facility] IN [place] [facility] [address] [facility] [phone]
== END 2017-05-10 16:44 | disposition home or self-care (01) ==
LOC: UCEAST 15:45
DX: Z03.89 Encounter for observation for other suspected diseases and conditions ruled out (principal); I10 Essential (primary) hypertension; Z79.82 Long term (current) use of aspirin; Z87.891 Personal history of nicotine dependence
CPT/HCPCS: 99212; G0463

== ENCOUNTER 2019-01-16 09:01 | Emergency (ER) | payer MEDICARE ==
--- OUTSIDE RECORDS SUMMARY | 2019-01-16 09:08 | XMS REPORT | Summary of Care ---
:1935 Author Organization [facility] Address [address] [address] Care Team Providers Name Role Phone Garrick Urrutia MD Primary Care Provider Jono Kasper MD Unavailable Reason for Visit Reason Comments Low Back Pain Encounter Details Date Type Department Care Team Description 01/15/2019 Office Visit [facility] - Deidre Boogie, PT Spinal stenosis, [facility] [address] [facility] lumbar region, [place] [address] [address] [place] [address] Drive [phone] claudication (Primary [address] [phone] Dx) [place] [address] (Fax) [phone] Allergies No Known Allergiesdocumented as of this encounter (statuses as of 01/15/2019) Medications Medication Sig Dispensed Refills Start Date End Date Status Aspirin 81 MG Oral Tab Take by mouth 0 Active EC DAILY. Alfuzosin HCl 10 MG Take by mouth 0 Active Oral TABLET SR 24 HR DAILY. Coenzyme Q10 (CO Q-10) Take by mouth 0 Active 200 MG Oral Cap DAILY. triamcinolone by Topical route 0 Active (KENALOG,ARISTOCORT) TWICE DAILY. 0.1 % Apply externally Cream carbamide peroxide Place 4 Drops 14.8 mL 0 01/25/2017 Active (DEBROX OTIC, EAR WAX into left ear REMOVAL) 6.5 % Otic TWICE DAILY. Solution Ferrous Sulfate (IRON) Take by mouth. 0 Active 325 (65 Fe) MG Oral Tab clobetasol (TEMOVATE) 1 Appl by Topical 1 05/02/2018 Active 0.05 % Apply externally route DAILY. Cream ketoconazole (NIZORAL) 1 Appl by Topical 3 05/26/2018 Active 2 % Apply externally route DAILY. Cream acetaminophen (TYLENOL) Take 2 Tabs by 120 Tab 0 10/11/2018 Active 325 MG Oral mouth EVERY FOUR TabIndications: HOURS NEEDED Trochanteric bursitis (pain). of right hip Omeprazole delayed rel TAKE ONE CAPSULE 90 Cap 3 11/10/2018 Active cap 20 MG Oral CAPSULE BY MOUTH EVERY DELAYED RELEASE MORNING valsartan (DIOVAN) 80 Take 1 Tab by 90 Tab 5 12/23/2018 Active MG Oral Tab mouth DAILY. Rosuvastatin Calcium Take 1 Tab by 90 Tab 5 12/23/2018 Active (CRESTOR) 10 MG Oral mouth EVERY Tab EVENING. documented as of this encounter (statuses as of 01/15/2019) Active Problems Problem Noted Date Iron deficiency anemia due to chronic blood loss 02/22/2017 Status post left hip replacement 08/23/2016 Overview: 01/22/2016 [place] S/P coronary artery stent placement 08/23/2016 Overview: 04/16/2016 [facility] Primary osteoarthritis of hip 02/13/2016 Overview: S/p left TOTAL HIP REPLACEMENT 01/25/16 History of tobacco use 06/16/2013 Overview: Quit early Began age 16 quit age 49 30-40 pack per day years Essential hypertension, benign 04/13/2013 Overview: Diagnosis Apr 2013 Polymyalgia rheumatica 07/31/2011 Overview: Rheumatology Dr. Bradford and his molding line assistant, Dr. Franklin Rose. 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 2-3 packs per day GERD (gastroesophageal reflux disease) 07/25/2009 03/29/2011 Diarrhea 05/25/2003 07/25/2009 Diverticulosis of small intestine (without mention of 05/21/2003 06/16/2013 hemorrhage) Abdominal pain, left lower quadrant 05/21/2003 07/25/2009 documented as of this encounter (statuses as of 01/15/2019) Immunizations Name Administration Dates Next Due H1N1 Injectable Adult 05/03/2009 Influenza (IM) Preservative Free 02/12/2013, 02/23/2011, 02/26/2008 Influenza Vaccine High Dose 02/25/2018, 02/22/2017, 02/27/2016, 02/16/2015, 03/05/2014 Influenza Vaccine Whole 03/02/2009, 03/02/2009, 03/18/2007, 02/28/2006, 03/16/2005, 03/14/2004 Influenza Virus Vaccine Pres Free 6-35 02/25/2012, 02/14/2010 Months PNEUMOCOCCAL POLYSACCHARIDE VACCINE 03/26/2005 Pneumococcal Conjugate(13 Valent) 07/08/2014 TDAP Vaccine 07/25/2009 ZOSTER (ZOSTAVAX) VACCINE 05/11/2014 documented as of this encounter Social History Tobacco Use Types Packs/Day Years Used Date Former Smoker Cigarettes, Cigars 1.5 40 1950 - 11/18/1989 Smokeless Tobacco: Never Used Alcohol Use Drinks/Week oz/Week Comments Yes 1-3 Cans of beer 1.0 - 3.0 1-3 A DAY Sex Assigned at Date Recorded Not on file Job Start Date Occupation Industry Not on file Not on file Not on file Travel History Travel Start Travel End No recent travel history available. documented as of this encounter Last Filed Vital Signs Not on filedocumented in this encounter Progress Notes Deidre Boogie, PT - 01/15/2019 10:30 AM EDT [facility] Treatment Note Outpatient Physical Therapy Services [facility] [address] [place] [id number] Treatment Number: 2 Referring Physician: Garrick Urrutia Primary Diagnosis: ICD-9-CM ICD-10-CM 1. Spinal stenosis, lumbar region, without neurogenic claudication 724.02 M48.061 Time In: 1030 Time Out: 1100 Pain at Start of Care: 4/10 Pain at End of Care: 2/10 Subjective Comments: He did not feel any worse after the eval and yesterday he was under his RV for a couple hours the pain increased to 6/10 after and that night. Interventions: Therapeutic Exercises (18204) Number of Exercises?: 6 Total Minutes (all Therapeutic Exercise): 15 Exercise #1 Exercise Name: standing hip flexor stretch Reason for Exercise: Functional Mobility;Pain Control Location/Body Area: LE;Trunk Exercise #2 Exercise Name: standing with chair behind quad Reason for Exercise: Functional Mobility;Pain Control Location/Body Area: LE;Trunk Exercise #3 Exercise Name: seated hamstring Reason for Exercise: Functional Mobility;Pain Control Location/Body Area: LE;Trunk Exercise #4 Exercise Name: adductor- need to modify Reason for Exercise: Functional Mobility;Pain Control Location/Body Area: LE;Trunk Manual Therapy (36826) Joint Mobilization: iliopsoas release Joint Mobilization Details: improved hip flexor function Total Minutes (All Manual Therapy): 15 Assessment: He tolerated the iliopsoas release and was tighter on the left. He was able to do the stretches. He is really flexible in the hip flexor so we will try the weston stretch next session. His quads are very tight. He also will need a modified adductor stretch as he is almost in a split when he tries it. Plan for Next Visit: Review stretches and go over the above modification. Total UNTIMED Code Treatment Minutes: Total TIMED Code Treatment Minutes: 30 Total Treatment Minutes: 30 Author: Deidre Boogie, PATRICIA 01/15/2019 11:35 documented in this encounter Plan of Treatment Date Type Specialty Care Team Description 01/26/2019 Office Visit Physical Therapy Deidre Boogie, PT [address] [place] [address] 01/28/2019 Office Visit Physical Therapy Deidre Boogie, PT [address] [place] [address] [phone] 02/02/2019 Office Visit Physical Therapy KeaganDeidre, PT [address] [place] [address] [phone] 02/04/2019 Office Visit Physical Therapy KeaganDeidre, PT [address] [place] [address] [phone] 02/09/2019 Office Visit Physical Therapy KeaganDeidre, PT [address] [place] [address] [phone] 02/25/2019 Chronic Care Management Family Practice Health Maintenance Due Date Last Done Comments FALL RISK ASSESSMENT 10/13/1999 ZOSTER IMMUNIZATION SERIES 07/06/2014 05/11/2014 (2 of 3) MEDICARE ANNUAL WELLNESS 12/30/2018 12/30/2017, 04/09/2016, VISIT 04/09/2016 INFLUENZA VACCINE (#1) 2019 02/25/2018, 02/22/2017, 02/27/2016, Additional history exists DEPRESSION SCREENING 12/24/2019 12/23/2018 PNEUMOCOCCAL 65+YRS Completed 07/08/2014, 03/26/2005 HPV IMMUNIZATION SERIES Aged Out No longer eligible based on patient's age to complete this topic MENINGOCOCCAL VACCINE IMM Aged Out No longer eligible based on patient's age to complete this topic documented as of this encounter Goals Goal Patient Goal Associated Recent Patient-Stated? Author Type Problems Progress Blood Pressure Blood Pressure 120/60 No Renan, < 150/90 (12/23/2018 Garrick Zhao, 2:12 PM EDT) Note: This is an individualized treatment (blood pressure) goal for Trung King . : Displayed above (on the left) is your goal for blood pressure control. Your most recent blood pressure is also shown above, on the right. You should try to achieve blood pressures that are lower than your goal listed above (on the left). Weight loss vs. 18 mo Lifestyle 0 (12/23/2018 2:12 PM Garrick Auguste MD max (lbs) >= 10 EDT) Note: This is an individualized lifestyle goal for Trung King: Your body mass index (BMI) is more than 30. You should lose weight. A reasonable starting goal is to lose 10 pounds. Displayed above is how many pounds you have lost thus far towards your 10 pound weight loss goal. Take all prescribed medications as Self-management Garrick Auguste MD directed Note: This is an individualized self-management goal for Trung King Jr.: Please take all prescribed medications as directed. 1. Do not skip doses. If you cannot afford your medications, talk with your doctor. 2. Use a pill reminder system such as a pill box if needed. Your pharmacist can help you with this. 3. Contact your Pharmacy 5 days before your medication runs out. If you cannot take your medications for any reasons, talk with your doctor. 4. Please bring all of your medication bottles and inhalers (or a list of all your medications/inhalers) with you to every visit. Potential barriers to meeting all of your care plan goals will continue to be addressed on an ongoing basis. documented as of this encounter Results Not on filedocumented in this encounter Visit Diagnoses Diagnosis Spinal stenosis, lumbar region, without neurogenic claudication - Primary documented in this encounter Insurance Payer Benefit Plan / Subscriber ID Effective Dates Phone Address Type Group EX[employer] MEDICARE EXCELLUS xxxxxxxxxxxx 2015-Present [email or web address] ADVANTAGE MEDICARE BLUE PPO [phone]) (Work) documented as of this encounter
--- OUTSIDE RECORDS SUMMARY | 2019-01-16 09:08 | XMS REPORT | Summary of Care ---
:1935 Author Organization [facility] Address [address] [address] Care Team Providers Name Role Phone Garrick Urrutia MD Primary Care Provider Jono Kasper MD Unavailable Reason for Referral Refer to Department Only (Routine) Status Reason Specialty Diagnoses / Referred By Referred To Procedures Contact Contact Authorized Physical Therapy Diagnoses Spinal stenosis of lumbar region without neurogenic claudication Geeta Urrutia MD Orthopaedics - [address] Therapy [place] [address] [address] Phone: [place], [place] [phone] Fax: Reason for Visit Reason Comments Breathing Problem Patient states he is still short of breath after all the testing he has had with cardiology and hematology. Encounter Details Date Type Department Care Team Description 12/23/2018 Office Visit [facility] Internal Garrick Urrutia, Spinal stenosis of lumbar region without neurogenic claudication (Primary Dx); Medicine Iron deficiency anemia due to chronic blood loss; [address] S/P coronary artery stent placement; [place] [address] [place] [address] Dyspnea on exertion; [phone] Obesity (BMI 30-39.9) Allergies No Known Allergiesdocumented as of this encounter (statuses as of 12/23/2018) Medications Medication Sig Dispensed Refills Start End Date Status Date Aspirin 81 MG Oral Take by mouth 0 Active Tab EC DAILY. Alfuzosin HCl 10 MG Take by mouth 0 Active Oral TABLET SR 24 HR DAILY. Coenzyme Q10 (CO Take by mouth 0 Active Q-10) 200 MG Oral DAILY. Cap triamcinolone by Topical 0 Active (KENALOG,ARISTOCORT) route TWICE 0.1 % Apply DAILY. externally Cream carbamide peroxide Place 4 Drops 14.8 mL 0 Active (DEBROX OTIC, EAR into left ear 7 WAX REMOVAL) 6.5 % TWICE DAILY. Otic Solution Ferrous Sulfate Take by 0 Active (IRON) 325 (65 Fe) mouth. MG Oral Tab clobetasol 1 Appl by 1 Active (TEMOVATE) 0.05 % Topical route 8 Apply externally DAILY. Cream ketoconazole 1 Appl by 3 Active (NIZORAL) 2 % Apply Topical route 9 externally Cream DAILY. acetaminophen Take 2 Tabs by 120 Tab 0 Active (TYLENOL) 325 MG mouth EVERY 9 Oral TabIndications: FOUR HOURS Trochanteric NEEDED (pain). bursitis of right hip Omeprazole delayed TAKE ONE 90 Cap 3 Active rel cap 20 MG Oral CAPSULE BY 9 CAPSULE DELAYED MOUTH EVERY RELEASE MORNING valsartan (DIOVAN) Take 1 Tab by 90 Tab 5 Active 80 MG Oral Tab mouth DAILY. 9 Rosuvastatin Calcium Take 1 Tab by 90 Tab 5 Active (CRESTOR) 10 MG Oral mouth EVERY 9 Tab EVENING. [place]-3 Fatty Acids Take by mouth 0 12/24/19 Discontinued (FISH OIL PO) DAILY 0700 on 19 (Provider Empty Stomach. Discontinued) Rosuvastatin Calcium Take 1 Tab by 0 12/24/19 Discontinued (CRESTOR) 5 MG Oral mouth DAILY. 19 (Provider Tab Discontinued) valsartan (DIOVAN) TAKE 1 TABLET 0 12/24/19 Discontinued 160 MG Oral Tab DAILY 8 19 (Provider Discontinued) Cholecalciferol Take by 0 12/24/19 Discontinued (VITAMIN D3) 2000 mouth. 19 (Provider units Oral Cap Discontinued) Dutasteride 0.5 MG Take 0.5 mg by 2 12/24/19 Discontinued Oral Cap mouth DAILY. 9 19 (Provider Discontinued) albuterol HFA Take 2 Puffs 1 Inhaler 0 12/24/19 Discontinued (VENTOLIN) 108 (90 by inhalation 9 19 (Provider Base) MCG/ACT EVERY FOUR Discontinued) Inhalation Aero HOURS SolnIndications: NEEDED COPD exacerbation (shortness of (HCC) breath, cough or wheeze). documented as of this encounter (statuses as of 12/23/2018) Active Problems Problem Noted Date Iron deficiency anemia due to chronic blood loss 02/22/2017 Status post left hip replacement 08/23/2016 Overview: 01/22/2016 [place] S/P coronary artery stent placement 08/23/2016 Overview: 04/16/2016 [facility] Primary osteoarthritis of hip 02/13/2016 Overview: S/p left TOTAL HIP REPLACEMENT 01/25/16 History of tobacco use 06/16/2013 Overview: Quit early Began age 16 quit age 49 30-40 pack per day years Essential hypertension, benign 04/13/2013 Overview: Diagnosis Apr 2013 Polymyalgia rheumatica 07/31/2011 Overview: Rheumatology Dr. Bradford and his office services assistant, Dr. Franklin Rose. 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 Cerebral cysts 07/06/2008 Overview: Noted on MRI, subarachnoid, stable Sensorineural hearing loss, asymmetrical 05/28/2008 Obstructive sleep apnea 11/26/2006 documented as of this encounter (statuses as of 12/23/2018) Resolved Problems Problem Noted Date Resolved Date [...] as of this encounter (statuses as of 12/23/2018) Immunizations Name Administration Dates Next Due H1N1 [...] of this encounter Last Filed Vital Signs Vital Sign Reading Time Taken Comments Blood Pressure 120/60 12/23/2018 2:12 PM EDT Pulse 68 12/23/2018 2:12 PM EDT Temperature - - Respiratory Rate - - Oxygen Saturation 97% 12/23/2018 2:12 PM EDT Inhaled Oxygen Concentration - - Weight 103.4 kg (228 lb) 12/23/2018 2:12 PM EDT Height 182.9 cm (6') 12/23/2018 2:12 PM EDT Body Mass Index 30.92 12/23/2018 2:12 PM EDT documented in this encounter Patient Instructions Patient InstructionsGarrick Urrutia MD - 12/23/2018 2:20 PM EDTShortness of breath is related to the weight You need to lose weight See physical therapy geeta [phone] for spinal stenosis Ask for Deidre at physical therapy Please schedule medicare annual well visit in jan or February documented in this encounter Progress Notes Garrick Urrutia MD - 12/23/2018 2:20 PM EDT PATIENT: Trung King : 1935 DATE OF SERVICE: 12/23/2018 CHIEF COMPLAINT: Chief Complaint Patient presents with Breathing Problem Patient states he is still short of breath after all the testing he has had with cardiology and hematology. Subjective HISTORY OF PRESENT ILLNESS: Trung King is a 83-y.o. male. HPI Seen by chang and no cardiovascular cause of dyspnea on exertion found he was sent ot [facility] who didbone marrow biopsy and recommended continue once daily iron pill he continues to have dyspnea on exertion he has longstanding lumbar spinal stenosis and asks for physical therapy for this he gets no regular exercise Due to pain from lumbar spinal stenosis chang increased rosuvastatin to 10 mg daily no chest pain no other cardiovascular symptoms Patient Active Problem List Diagnosis Obstructive sleep apnea Sensorineural hearing loss, asymmetrical Cerebral cysts Sensory polyneuropathy Obesity Mixed hyperlipidemia Polymyalgia rheumatica (HCC) Essential hypertension, benign History of tobacco use Primary osteoarthritis of hip Status post left hip replacement S/P coronary artery stent placement Iron deficiency anemia due to chronic blood loss Family History Problem Relation Age of Onset No Known Problems Mother Hypertension Father Respiratory Sister COPD Asthma Sister No Known Problems Daughter No Known Problems Son No Known Problems Daughter Current Outpatient Medications Medication Sig acetaminophen (TYLENOL) 325 MG Oral Tab Take 2 Tabs by mouth EVERY FOUR HOURS NEEDED (pain). Alfuzosin HCl 10 MG Oral TABLET SR 24 HR Take by mouth DAILY. Aspirin 81 MG Oral Tab EC Take by mouth DAILY. carbamide peroxide (DEBROX OTIC, EAR WAX REMOVAL) 6.5 % Otic Solution Place 4 Drops into leftear TWICE DAILY. clobetasol (TEMOVATE) 0.05 % Apply externally Cream 1 Appl by Topical route DAILY. Coenzyme Q10 (CO Q-10) 200 MG Oral Cap Take by mouth DAILY. Ferrous Sulfate (IRON) 325 (65 Fe) MG Oral Tab Take by mouth. ketoconazole (NIZORAL) 2 % Apply externally Cream 1 Appl by Topical route DAILY. Omeprazole delayed rel cap 20 MG Oral CAPSULE DELAYED RELEASE TAKE ONE CAPSULE BY MOUTH EVERYMORNING Rosuvastatin Calcium (CRESTOR) 10 MG Oral Tab Take 1 Tab by mouth EVERY EVENING. triamcinolone (KENALOG,ARISTOCORT) 0.1 % Apply externally Cream by Topical route TWICE DAILY. valsartan (DIOVAN) 80 MG Oral Tab Take 1 Tab by mouth DAILY. No current facility-administered medications for this visit. No Known Allergies Social History Socioeconomic History Marital status: Spouse name: Not on file Number of children: Not on file Years of education: Not on file Highest education level: Not on file Occupational History Not on file Social Needs Financial resource strain: Not on file Food insecurity: Worry: Not on file Inability: Not on file Transportation needs: Medical: Not on file Non-medical: Not on file Tobacco Use Smoking status: Former Smoker Packs/day: 1.50 Years: 40.00 Pack years: 60.00 Types: Cigarettes, Cigars Start date: 1949 Last attempt to quit: 11/18/1989 Years since quittin.1 Smokeless tobacco: Never Used Substance and Sexual Activity Alcohol use: Yes Alcohol/week: 1.0 - 3.0 standard drinks Types: 1 - 3 Cans of beer per week Comment: 1-3 A DAY Drug use: No Sexual activity: Never Lifestyle Physical activity: Days per week: Not on file Minutes per session: Not on file Stress: Not on file Relationships Social connections: Talks on phone: Not on file Gets together: Not on file Attends caodaism service: Not on file Active member of club or organization: Not on file Attends meetings of clubs or organizations: Not on file Relationship status: Not on file Intimate partner violence: Fear of current or ex partner: Not on file Emotionally abused: Not on file Physically abused: Not on file Forced sexual activity: Not on file Other Topics Concern Back Care Not Asked Bike Helmet Not Asked Blood Transfusions Not Asked Caffeine Concern Not Asked Exercise Yes Comment: walks daily Hobby Hazards Not Asked International Travel Not Asked Service Not Asked Occupational Exposure Not Asked Seat Belt Not Asked Self-Exams Not Asked Sleep Concern No Special Diet No Stress Concern Not Asked Weight Concern Not Asked Social History Narrative . Has 3 adult children. 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 Physical Exam Chest is clear, no wheezing or rales. Normal symmetric air entry throughout both lung contreras. No chest wall deformities or tenderness. I spent 25 minutes with the patient, greater than half of this in direct face to face counseling addressing the current condition and the plan of care. ASSESSMENT / IMPRESSION: ICD-9-CM ICD-10-CM 1. Spinal stenosis of lumbar region without neurogenic claudication physical therapy referral 724.02 M48.061 REFER TO PHYSICAL THERAPY / REHAB 2. Iron deficiency anemia due to chronic blood loss continue current medications 280.0 D50.0 3. S/P coronary artery stent placement V45.82 Z95.5 4. Dyspnea on exertion due to #4 786.09 R06.09 5. Obesity (BMI 30-39.9) 278.00 E66.9 Patient Instructions Shortness of breath is related to the weight You need to lose weight See physical therapy geeta [phone] for spinal stenosis Ask for Deidre at physical therapy Please schedule medicare annual well visit in jan or February Garrick Urrutia MD 12/23/2018 14:29 documented in this encounter Plan of Treatment Date Type Specialty Care Team Description 01/13/2019 Office Visit Physical Therapy Deidre Boogie, PT [address] [place] [address] [phone] 02/25/2019 Chronic Care Management Family Practice Name Type Priority Associated Diagnoses Order Schedule REFER TO PHYSICAL Referral Routine Spinal stenosis of lumbar Ordered: 12/23 THERAPY / REHAB region without neurogenic claudication Health Maintenance Due Date Last Done Comments ZOSTER IMMUNIZATION SERIES 07/06/2014 05/11/2014 (2 of 3) FALL RISK ASSESSMENT 12/30/2018 12/30/2017, 12/30/2017 MEDICARE ANNUAL WELLNESS 12/30/2018 12/30/2017, 04/09/2016, VISIT [...] individualized treatment (blood pressure) goal for Trung Costa Christine Sagastume. : Displayed above (on the left) is [...] is an individualized lifestyle goal for Trung M Christine: Your body mass index (BMI) is more than 30. You should lose weight. A reasonable starting goal is to lose 10 pounds. Displayed above is how many pounds you have lost thus far towards your 10 pound weight loss goal. Take all prescribed medications as Self-management Garrick Auguste MD directed Note: This is an individualized self-management goal for Trung Costa Christine Sagastume.: Please take all prescribed medications as directed. [...] in this encounter Visit Diagnoses Diagnosis Spinal stenosis of lumbar region without neurogenic claudication - Primary Spinal stenosis, lumbar region, without neurogenic claudication Iron deficiency anemia due to chronic blood loss Iron deficiency anemia secondary to blood loss (chronic) S/P coronary artery stent placement Postsurgical percutaneous transluminal coronary angioplasty status Dyspnea on exertion Other dyspnea and respiratory abnormality Obesity (BMI 30-39.9) Obesity, unspecified documented in this encounter Insurance Payer Benefit Plan / Subscriber ID Effective Dates Phone Address Type Group [employer] EX[employer] xxxxxxxxxxxx 2015-Present [employer] BLUE PPO [phone]) (Work) documented as of this encounter"
--- OUTSIDE RECORDS SUMMARY | 2019-01-16 09:08 | XMS REPORT | Continuity of Care Document ---
:1935 External Reference #:[id number] Author Name Ellyn Mario NP (transmitted by agent of provider Jannet Segovia) Address [address], [address] [place] [address] Care Team Providers Name Role Phone Garrick Urrutia MD - Internal Care Team Information Continuous Drier Helper [phone] Medicine Problems Active Problems Provider Date Rheumatoid arthritis David Bradford M.D. Onset: 02/07/2012 Medications Dental Director (Current) Use David Bradford M.D. Onset: 02/07/2012 Encounter Carpal tunnel syndrome David Bradford M.D. Onset: 02/07/2012 Polymyalgia rheumatica David Bradford M.D. Onset: 04/22/2012 Sprain of shoulder and upper arm Eliezer Rhodes M.D. Onset: 06/09/2015 Localized, primary osteoarthritis of Shannon Anaya M.D. Onset: 12/05/2015 the pelvic region and thigh Spinal stenosis of lumbar region Omega Ernandez M.D. Onset: 12/16/2015 Encounter for planned postprocedural Christian Lara M.D., [facility], [facility] Onset: wound closure Social History Type Date Description Comments Sex Unknown Tobacco Use Start: Unknown End: Former Cigarette Smoker Unknown ETOH Use Consumes 1 beer per day Tobacco Use Start: Unknown End: Patient is a former smoker Unknown Recreational Drug Use Denies Drug Use Tobacco Use Start: Unknown Secondhand smoke Parents Smoking Status Reviewed: 12/26/18 Secondhand smoke Parents Exercise Type/Frequency Exercises sporadically Allergies, Adverse Reactions, Alerts Description No Known Drug Allergies Medications Active Medications SIG Qnty Indications Ordering Provider Date Norvasc 2 tabs by mouth 180tabs Rudy Dickens 10/23/2018 2.5mg Tablets daily Vern Bejarano Crestor 1 by mouth every 90tabs E78.5 Rudy Dickens 10/20/2018 10mg Tablets day Vern Bejarano Diovan 1/2 tablet by 90tabs Rudy Dickens 04/01/2017 160mg Tablets mouth daily Vern Bejarano Omeprazole 1 by mouth every Unknown 20mg third day Capsules DR Aspirin 1 by mouth every Unknown 81mg Tablets DR day Co Q 10 1 by mouth every Unknown 200mg Capsules day Alfuzosin HCL ER 1 po qd Unknown 10mg Tablets ER 24HR Iron 1 by mouth every Unknown 325(65Fe) mg day Tablets Vitamin C 1 by mouth every Unknown 1000mg day Tablets Medications Administered in Office Medication SIG Qnty Indications Ordering Provider Date Technetium TC 99M Darion Ríos, DO [facility] 10/23/2018 Tetrofosmin, Per Unit Dose Up To 40 Millicuries Injection Technetium TC 99M Darion Ríos, DO [facility] 10/23/2018 Tetrofosmin, Per Unit Dose Up To 40 Millicuries Injection Unclassified Drugs Darion Ríos, DO [facility] 04/16/2016 Injection Technetium TC 99M Darion Ríos, DO [facility] 04/16/2016 Tetrofosmin, Per Unit Dose Up To 40 Millicuries Injection Depomedrol 40MG Mani Cristina M.D. 08/19/2013 Injection PPD David Bradford M.D. 09/11/2011 Injection Celestone 3 mg and 3mg Olivia Barreto, 07/28/2010 Injection Vern Immunizations Description No Information Available Vital Signs Date Vital Result Comment 12/26/2018 9:22am Height 72 inches 6'0" Weight 230.00 lb Heart Rate 69 /min BP Systolic Sitting 130 mmHg BP Diastolic Sitting 78 mmHg O2 % BldC Oximetry 96 % BMI (Body Mass Index) 31.2 kg/m2 09/25/2018 9:29am Height 72 inches 6'0" Weight 221.38 lb Clothes/shoes Heart Rate 82 /min Radial BP Systolic Sitting 156 mmHg Lue reg cuff BP Diastolic Sitting 70 mmHg Lue reg cuff BP Systolic Standing 158 mmHg Lue reg cuff BP Diastolic Standing 78 mmHg Lue reg cuff BMI (Body Mass Index) 30.0 kg/m2 Ejection Fraction REF 50-55% Stress test 06/06/2016 Results Test Date Facility Test Result H/L Range Note Lipid Panel - 10/08/2018 [facility] Creatine 96 U/L Normal 10- [address] Kinase(CK) [place], [place] [id number] [phone] Comp Metabolic 10/08/2018 [facility] Sodium 140 mmol/L Normal 135-[address] [place] [address] [phone] Potassium 4.9 mmol/L Normal 3.5-5.0 Chloride 107 mmol/L Normal 101-111 Co2 Carbon Dioxide 28 mmol/L Normal 22-32 Anion Gap 5 mmol/L Normal 2-11 Glucose 105 mg/dL High 70-100 Blood Urea Nitrogen 27 mg/dL High 6-24 Creatinine 1.21 mg/dL High 0.67-1.17 BUN/Creatinine Ratio 22.3 High 8-20 Calcium 10.0 mg/dL Normal 8.6-10.3 Total Protein 6.3 g/dL Low 6.4-8.9 Albumin 4.0 g/dL Normal 3.2-5.2 Globulin 2.3 g/dL Normal 2-4 Albumin/Globulin Ratio 1.7 Normal 1-3 Total Bilirubin 0.40 mg/dL Normal 0.2-1.0 Alkaline Phosphatase 64 U/L Normal 34-104 Alt 15 U/L Normal 7-52 Ast 16 U/L Normal 13-39 Egfr Non- 57.3 >60 Egfr 69.3 >60 1 Lipid Profile 10/08/2018 [facility] Triglycerides 106 mg/dL 2 (Trig/Chol/HDL) [address] [place] [address] [phone] Cholesterol 177 mg/dL 3 HDL Cholesterol 41.9 mg/dL 4 LDL Cholesterol 114 mg/dL 5 Laboratory test 10/08/2018 [facility] B-Type 75 pg/mL <=[address] [place] [address] Peptide BNP [phone] 1 Because ethnic data is not always readily available, this report includes an eGFR for both -Americans and non- Americans. The National Kidney Disease Education Program (NKDEP) does not endorse the use of the MDRD equation for patients that are not between the ages of 18 and 70, are , have extremes of body size, muscle mass, or nutritional status, or are non- or non-. According to the National Kidney Foundation, irrespective of diagnosis, the stage of the disease is based on the level of kidney function: Stage Description GFR(mL/min/1.73 m(2)) 1 Kidney damage with normal or decreased GFR 90 2 Kidney damage with mild decrease in GFR 60-89 3 Moderate decrease in GFR 30-59 4 Severe decrease in GFR 15-29 5 Kidney failure <15 (or dialysis) 2 Desirable: <150 Borderline High: 150-199 High: 200-499 Very High: >500 3 Desirable: <200 Borderline High: 200-239 High: >239 4 Low: <40 Desirable: 40-60 High: >60 5 Desirable: <100 Near Optimal: 100-129 Borderline High: 130-159 High: 160-189 Very High: >189 Procedures Date Code Description Status 10/23/2018 10956 Stress Test Completed 10/23/2018 00044 Myocardial Perfusion Imaging Tomographic (Spect) Multiple Completed Studies 10/20/2018 61640 ECHO Transthorasic Realtime 2D W Doppler & Color Flow Hosp Completed 10/20/2018 45376 ECHO Transthorasic Realtime 2D W Doppler & Color Flow Hosp Completed 09/25/2018 70319 EKG Tracing & Interpretation Completed 09/04/2018 49758 Sleep Study Unattended,HRT Rate,Oxygen Sat,Resp Completed Effort/Airflow Medical Devices Description No Information Available Encounters Type Date Location Provider Dx Diagnosis Office Visit 12/26/2018 [facility] Ellyn G47.33 Obstructive sleep 9:30a [facility] Mario apnea (adult) Fur Blender (pediatric) R06.02 Shortness of breath E66.9 Obesity, unspecified Office Visit 09/25/2018 9:40a [facility] Rudy Dickens R06.02 Shortness of Vern Bejarano breath I10 Essential (primary) hypertension E66.9 Obesity, unspecified E78.00 Pure hypercholesterolemia, unspecified I25.10 [facility] [place] coronary artery w/o ang pctrs D64.9 Anemia, unspecified E66.8 Other obesity Office Visit 09/15/2018 11:45a Pul[facility] And Chrissy G47.33 Obstructive sleep [facility] apnea (adult) Fur Blender (pediatric) 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 Office Visit 09/01/2018 8:30a [facility] Chrissy R06.02 Shortness of [facility] breath Fur Blender G47.33 Obstructive sleep apnea (adult) (pediatric) Assessments Date Code Description Provider 12/26/2018 G47.33 Obstructive sleep apnea (adult) Ellyn Mario NP (pediatric) 12/26/2018 R06.02 Shortness of breath Ellyn Mario NP 12/26/2018 E66.9 Obesity, unspecified Ellyn Mario NP 10/23/2018 I25.10 Atherosclerotic heart disease of [place] Darion Ríos, DO [facility] coronary artery with 10/23/2018 I25.10 Atherosclerotic heart disease of [place] Rudy Bejarano M.D. coronary artery with 10/20/2018 R06.02 Shortness of breath Rudy Bejarano M.D. 10/20/2018 R06.02 Shortness of breath Traveling ECHO 1 10/20/2018 E78.00 Pure hypercholesterolemia, unspecified Traveling ECHO 1 10/20/2018 I10 Essential (primary) hypertension Traveling ECHO 1 10/20/2018 I25.10 Atherosclerotic heart disease of [place] Traveling ECHO 1 coronary artery with 09/25/2018 R06.02 Shortness of breath Rudy Bejarano M.D. 09/25/2018 I10 Essential (primary) hypertension Rudy Bejarano M.D. 09/25/2018 E66.9 Obesity, unspecified Rudy Bejarano M.D. 09/25/2018 E78.00 Pure hypercholesterolemia, unspecified Rudy Bejarano M.D. 09/25/2018 I25.10 Atherosclerotic heart disease of [place] Rudy Bejarano M.D. coronary artery with 09/25/2018 D64.9 Anemia Rudy Bejarano M.D. 09/25/2018 E66.8 Obesity Rudy Bejarano M.D. 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 at [facility]12/26/2018 - Ellyn Mario NPG47.33 Obstructive sleep apnea ( adult) (pediatric)Follow up:3 monthsRecommendations:If you continue to have issues with mask leak with this new size of mask, talk to your homecare company about trying a different style. If you have difficulty with your equipment, or need to replace your mask or hoses, please contact your homecare agency. If you have any further questions, please call the [facility] at If you have any sleepiness while driving you MUST avoidoperating a vehicle or machinery.R06.02 Shortness of [id number] Obesity, unspecifiedRecommendations:Work on incorporating more exercise into your daily routine, even when you are in [place] Functional Status Description No Information Available Mental Status Description No Information Available Referrals Refer to Reason for Referral Status Appt Date Nickolas Oviedo M.D. persistent anemia and thrombocytopenia Sent [address] [address] [phone]
--- OUTSIDE RECORDS SUMMARY | 2019-01-16 09:08 | XMS REPORT | Summary of Care ---
:1935 Author Organization [facility] Address [address] [address] Care Team Providers Name Role Phone Garrick Urrutia MD Primary Care Provider Jono Kasper MD Unavailable Reason for Visit Reason Comments Low Back Pain Refer to Department Only (Routine) Status Reason Specialty Diagnoses / Referred By Referred To Procedures Contact Contact Authorized Physical Therapy Diagnoses Spinal stenosis of lumbar region without neurogenic claudication Geeta Urrutia MD Orthopaedics - [address] [place] [address] RD Therapy [place] [address] [address] Phone: [place], [place] [phone] Fax: Encounter Details Date Type Department Care Team Description 01/13/2019 Office Visit [facility] - Deidre Boogie, PT Spinal stenosis, [place] [facility] [address] [place] [address] lumbar region[place] [address] [place] [address] claudication (Primary [address] [phone] Dx) [place] [phone] (Fax) [phone] Allergies No Known Allergiesdocumented as of this encounter (statuses as of 01/13/2019) Medications Medication Sig Dispensed Refills Start Date [...] as of this encounter (statuses as of 01/13/2019) Active Problems Problem Noted Date Iron deficiency anemia due to chronic blood loss 02/22/2017 Status post left hip replacement 08/23/2016 Overview: 01/22/2016 Juanis Reddy S/P coronary artery stent placement 08/23/2016 Overview: 04/16/2016 [facility] Primary osteoarthritis of hip 02/13/2016 Overview: S/p left TOTAL HIP REPLACEMENT 01/25/16 History of tobacco use 06/16/2013 Overview: Quit early 1990s Began age 16 quit age 49 30-40 pack per day years Essential hypertension, benign 04/13/2013 Overview: Diagnosis Apr 2013 Polymyalgia rheumatica 07/31/2011 Overview: Rheumatology Dr. Bradford and his special event assistant, Dr. Franklin Rose. 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, subarachnoid, stable Sensorineural hearing loss, asymmetrical 05/28/2008 Obstructive sleep apnea 11/26/2006 documented as of this encounter (statuses as of 01/13/2019) Resolved Problems Problem Noted Date Resolved Date [...] as of this encounter (statuses as of 01/13/2019) Immunizations Name Administration Dates Next Due H1N1 [...] on filedocumented in this encounter Progress Notes Keagan Deidre, PT - 01/13/2019 1:30 PM EDT [facility] Initial Evaluation Outpatient Physical Therapy [facility] [address] [place] [phone] Patient: Trung King : 1935 Date of Service: 01/13/2019 Referring Physician: Garrick Urrutia Primary Diagnosis: ICD-9-CM ICD-10-CM 1. Spinal stenosis, lumbar region, without neurogenic claudication 724.02 M48.061 Time In: 1330 Time Out: 1430 Subjective: He is a 83-y.o.-year-old male who presents for outpatient physical therapy with a chiefcomplaint of low back pain. Pain started 1.5 years ago when he was in [place] and started [employer]. Prior Functional Status: independent Current Functional Status: independent Abuse/Neglect Screening Are you being threatened or hurt by anyone? : No FOTO Data FOTO Intake Completed: Yes Intake FS Score: 47 Predicted FS Score: 53 Objective: Past Medical History: Diagnosis Date ABDOMINAL PAIN LLQ 05/21/2003 Backache, unspecified 01/01/2007 Carpal tunnel syndrome 03/31/2009 Dr Montano 09/02/08, nerve conduction study showed evidence of bilateral carpal tunnel syndrome. DIARRHEA NOS 05/25/2003 DIARRHEA NOS 05/21/2003 DIVERTICULOSIS SM INTEST W/O BLEED 05/21/2003 Esophageal stricture had egd HEART DISEASE NOS 05/21/2003 Hypertension Tuberculosis Past Surgical History: Procedure Laterality Date CARPAL TUNNEL RELEASE both hands, Dr. Cristina CATARACT EXTRACTION NEC Bilateral LA TENOTOMY HAND EXTEN,SINGLE,OPEN,EACH 02/12/2011 Dr. Cristina, trigger finger release x3 STENT x2 TONSILLECTOMY TOTAL HIP REPLACEMENT Left in [place] Current Outpatient Medications: acetaminophen (TYLENOL) 325 MG Oral Tab, Take 2 Tabs by mouth EVERY FOUR HOURS NEEDED (pain)., Disp: 120 Tab, Rfl: 0 Alfuzosin HCl 10 MG Oral TABLET SR 24 HR, Take by mouth DAILY., Disp: , Rfl: Aspirin 81 MG Oral Tab EC, Take by mouth DAILY., Disp: , Rfl: carbamide peroxide (DEBROX OTIC, EAR WAX REMOVAL) 6.5 % Otic Solution, Place 4 Drops into left ear TWICE DAILY., Disp: 14.8 mL, Rfl: 0 clobetasol (TEMOVATE) 0.05 % Apply externally Cream, 1 Appl by Topical route DAILY., Disp: ,Rfl: 1 Coenzyme Q10 (CO Q-10) 200 MG Oral Cap, Take by mouth DAILY., Disp: , Rfl: Ferrous Sulfate (IRON) 325 (65 Fe) MG Oral Tab, Take by mouth., Disp: , Rfl: ketoconazole (NIZORAL) 2 % Apply externally Cream, 1 Appl by Topical route DAILY., Disp: , Rfl: 3 Omeprazole delayed rel cap 20 MG Oral CAPSULE DELAYED RELEASE, TAKE ONE CAPSULE BY MOUTH EVERY MORNING, Disp: 90 Cap, Rfl: 3 Rosuvastatin Calcium (CRESTOR) 10 MG Oral Tab, Take 1 Tab by mouth EVERY EVENING., Disp: 90 Tab, Rfl: 5 triamcinolone (KENALOG,ARISTOCORT) 0.1 % Apply externally Cream, by Topical route TWICE DAILY., Disp: , Rfl: valsartan (DIOVAN) 80 MG Oral Tab, Take 1 Tab by mouth DAILY., Disp: 90 Tab, Rfl: 5 No Known Allergies Objective; FIS wfl EIS very limited Rotation is wfl to the left but very limited to the right. MMT dorsiflexion on left is -5/5 and right is 5/5 Hip flexors on left is -4/5 and right -4/5 All others are wnl Sensation was intact with touch but he does have neuropathy. HE is on Crestor and will have calf cramping. Gait has slight forward lean and right shift. Hx of scoliosis and bone spurs' Plan of Care Plan of Care Start Date: 01/13/19 Plan of Care Expiration Date: 04/14/19 Prior Function Comment: independent Current Function Comment: independent Rehabilitative Prognosis: Excellent Planned Intervention(s): PT Eval Moderate Complexity (22447) Frequency of Treatments: 1-2 times a week Duration of Treatments: 1 month History Components: Moderate (1-2 personal factors and/or comorbidities) Examination of Body Systems/Components: Moderate (Addressing a total of 3 or more elements) Clinical Presentation: Evolving - changing/inconsistent clinical characteristics (Moderate) Clinical Decision Making (complexity): Moderate Treatment Number: 1 Total Time of Evaluation: 30 Outcome Tools Used: foto Assessment: 83 year old male with spinal stenosis. He has had chronic back pain fot 45 years but inthe last 1.5 has had "current episode". He went to [employer] and I think he irritated the back and hip flexor muscles and now has increased tension and compression on the stenotic areas. Treatmentwill focus on reducing tension an return to safe gym workout. Was Physical Therapy treatment performed at this visit? Yes: Interventions: FOTO Data FOTO Intake Completed: Yes Intake FS Score: 47 Predicted FS Score: 53 Manual Therapy (92688) Soft Tissue Mobilization: Manual Tissue Mobilization Soft Tissue Mobilization Details: biofreeze Joint Mobilization: iliopsoas release Joint Mobilization Details: improved hip flexor function Total Minutes (All Manual Therapy): 30 Plan for Next Visit: re-assess low back pain and hip flexor tightness start stretches. Evaluation Complexity Assessment: History Components: Moderate (1-2 personal factors and/or comorbidities) Examination of Body Systems/Components: Moderate (Addressing a total of 3 or more elements) Clinical Presentation: Evolving - changing/inconsistent clinical characteristics (Moderate) Clinical Decision Making (complexity): Moderate Treatment Number: 1 Total Time of Evaluation: 30 Total Number of Timed Code Treatment Minutes: 30 Author: Deidre Boogie, PT 01/13/2019 14:20 documented in this encounter Plan of Treatment Date Type Specialty Care Team Description 01/15/2019 Office Visit Physical Therapy Deidre Boogie, PT [address] [place] [address] [phone] 01/26/2019 Office Visit Physical Therapy Deidre Boogie, PT [address] [place] [address] [phone] 01/28/2019 Office Visit Physical Therapy Deidre Boogie, PT [address] [place] [address] [phone] 02/02/2019 Office Visit Physical Therapy Deidre Boogie, PT [address] [place] [address] [phone] 02/04/2019 Office Visit Physical Therapy Deidre Boogie, PT [address] [place] [address] [phone] 02/09/2019 Office Visit Physical Therapy TimurDeidre matias, PT [address] [place] [address] [phone] 02/25/2019 [facility] Name [...] treatment (blood pressure) goal for Trung King Jr. : Displayed above (on the left) is [...] Dates Phone Address Type Group [employer] EX[employer] xxxxxxxxxxxx 2015-Present [employer] MEDIC[employer] BLUE PPO [phone]) (Work) documented as of this encounter
[2019-01-16 09:13] VITALS: BP 153/84
--- NOTE | 2019-01-16 09:46 | UC ---
Skin Complaint HPI - HPI Summary HPI Summary: 83 yo male presents with lesion to right ear. He tells me that about 2 weeks ago he noticed a bump to his right ear that he scratched and it bled. A week ago still had a scab on it that he scratched off. Today he is here because the area is tender and does not seem to be healing. He has a history of multiple AKs , moles, and "sun spots" for which he sees dermatology every year - last visit was a 2-3 months ago. He denies fever or chills. - History of Current Complaint Chief Complaint: UCSkin Time Seen by Provider: 01/16/19 09:46 Stated Complaint: WOUND ON EAR Hx Obtained From: Patient Onset/Duration: Gradual Onset Onset Severity: Mild Current Severity: Moderate Pain Intensity: 5 Pain Scale Used: 0-10 Numeric - Allergy/Home Medications Allergies/Adverse Reactions: Allergies Allergy/AdvReac Type Severity Reaction Status Date / Time No Known Allergies Allergy Verified 01/16/19 09:14 Home Medications: Home Medications Valsartan TAB* [Diovan TAB*] 80 mg PO DAILY 01/16/19 [History Confirmed 01/16/19 ] PMH/Surg Hx/FS Hx/Imm Hx Endocrine History: Dyslipidemia Cardiovascular History: Cardiac Disease, Hypertension Other History Of: Anticoagulant Therapy - 81 mg aspirin every three days. Negative For: HIV, Hepatitis B, Hepatitis C - Surgical History Surgical History: Yes Surgery Procedure, Year, and Place: CARPAL TUNNEL RIGHT- [facility] TRIGGER FINGER- [facility] CARPAL TUNNEL LEFT 2011 BILATERAL CATARACT REMOVAL-(MESHA SN60WF -MRI SAFE-3T)[facility] TONSILECTOMY,CYST REMOVED FROM BLADDER, L hip replacement, CARDIAC CATH W/ STENTS PLACED - Family History Known Family History: Positive: Hypertension - Social History Occupation: Retired Lives: With Family Alcohol Use: Daily Alcohol Amount: 1 beer Substance Use Type: None Substance Use Comment - Amount & Last Used: 1 BEER/DAY Smoking Status (MU): Former Smoker Amount Used/How Often: 1-2 PPD X 25 YEARS Have You Smoked in the Last Year: No When Did the Patient Quit Smoking/Using Tobacco: 30 YEARS AGO - Immunization History Most Recent Influenza Vaccination: 2016 Most Recent Tetanus Shot: within 3 years Most Recent Pneumonia Vaccination: within 3 years Review of Systems All Other Systems Reviewed And Are Negative: No Constitutional: Positive: Negative Skin: Positive: Other - right ear lesion Respiratory: Positive: Negative Cardiovascular: Positive: Negative Neurological: Positive: Negative Psychological: Positive: Negative Physical Exam - Summary Physical Exam Summary: GENERAL: NAD. WDWN. No pain distress. SKIN: RIGHT EAR: antihelix with 5mm firm nodule with central slight ulceration and scab. Mildly TTP. No surrounding erythema or drainage. No purulent matter able to be expressed. CHEST: No accessory muscle use. Breathing comfortably and in no distress. CV: Pulses intact. Cap refill <2seconds NEURO: Alert. PSYCH: Age appropriate behavior. Triage Information Reviewed: Yes Vital Signs: Initial Vital Signs Temp 98 F 01/16/19 09:11 Pulse 70 01/16/19 09:11 Resp 18 01/16/19 09:11 BP 153/84 01/16/19 09:11 Pulse Ox 99 01/16/19 09:11 Vital Signs Reviewed: Yes Course/Dx - Course Course Of Treatment: Lesion on right ear is suspicious for SCC vs BCC especially given pt's history of dermatological issues. Does not appear infectious or cystic at this time. I discussed this with him and recommended that he f/u with his pelletizer tender within 1 month for further evaluation of the area. - Diagnoses Provider Diagnosis: Lesion of right external ear Discharge ED - Sign-Out/Discharge Documenting (check all that apply): Patient Departure All imaging exams completed and their final reports reviewed: No Studies - Discharge Plan Condition: Stable Disposition: HOME Referrals: Garrick Urrutia MD [Primary Care Provider] - Additional Instructions: If you develop a fever, shortness of breath, chest pain, new or worsening symptoms - please call your PCP or go to the ED immediately. Your blood pressure was high at todays visit. Please see your primary provider within 4 weeks for recheck and re-evaluation. I recommend that you leave the spot on your ear alone. If it is still present when you return, please follow up with your pelletizer tender for further testing - Billing Disposition and Condition Condition: STABLE Disposition: Home
== END 2019-01-16 10:01 | disposition home or self-care (01) ==
LOC: UCEAST 09:01
DX: L98.9 Disorder of the skin and subcutaneous tissue, unspecified (principal); E78.5 Hyperlipidemia, unspecified; I10 Essential (primary) hypertension; Z79.82 Long term (current) use of aspirin
CPT/HCPCS: 99211; G0463

== ENCOUNTER 2021-04-08 01:03 | Inpatient (IN) ==
[2021-04-08 01:50] LABS: ABS Lymphocytes 0.6 10^3/ul (1.0-4.8); ABS Monocytes 0.3 10^3/ul (0-0.8); Eosinophil % 0.2 %; Hematocrit 31 % (42-52); Hemoglobin 10.5 g/dL (14.0-18.0); Lymphocyte % 5.3 %; Mean Corpuscular HGB Conc 34 g/dL (31-36); Mean Corpuscular Hemoglobin 31 pg (27-31); Mean Corpuscular Volume 91 fL (80-94); Mean Platelet Volume 9.5 fL (7.4-10.4); Platelet Count 151 10^3/uL (150-450); Red Blood Count 3.41 10^6 /uL (4.18-5.48); Red Cell Distribution Width 14 % (10-15); White Blood Count 10.9 10^3/uL (3.5-10.8)
[2021-04-08 01:57] LABS: Activated Partial Thrombo Time 29.3 seconds (26.0-38.0); INR 1.04 (0.86-1.15)
[2021-04-08 02:02] LABS: ALT 14 U/L (7-52); AST 21 U/L (13-39); Albumin 3.4 g/dL (3.2-5.2); Albumin/Globulin Ratio 1.3 (1-3); Alkaline Phosphatase 37 U/L (35-149); Anion Gap 7 mmol/L (2-11); Blood Urea Nitrogen 36 mg/dL (6-24); C Reactive Protein 155.77 mg/L (<8.01); CO2 Carbon Dioxide 24 mmol/L (22-32); Calcium 9.2 mg/dL (8.6-10.3); Chloride 101 mmol/L (101-111); Globulin 2.6 g/dL (2-4); Glucose 106 mg/dL (70-100); LDH 221 U/L (140-271); Potassium 4.4 mmol/L (3.5-5.0); Sodium 132 mmol/L (135-145)
[2021-04-08 02:05] LABS: Venous Bicarbonate HCO3 23.7 mmol/L (24-28)
[2021-04-08 02:13] LABS: Rapid COVID-19 Molecular Detected (Undetected)
[2021-04-08 02:21] LABS: Influenza A Molecular Negative (Negative); Influenza B Molecular Negative (Negative)
[2021-04-08 02:21] LABS: Ferritin 232.6 ng/mL (24-336); Troponin I 0.03 ng/mL (<0.03)
[2021-04-08] MEDS ORDERED: Remdesivir 100 mg Vial 200 MG in NS 0.9% 250 ml 210 ML IV ONE (04:00)
[2021-04-08 08:13] LABS: Troponin I 0.04 ng/mL (<0.03)
[2021-04-08] MEDS: Coenzyme Q10 CAP (NF) ** ENTER STREGNTH IN LABEL DIRECTIONS PO SCH (11:01)
[2021-04-08] MEDS: Enoxaparin 40 MG/0.4 ML SYR SUBCUT SCH (11:01)
[2021-04-08 14:34] LABS: Troponin I 0.03 ng/mL (<0.03)
[2021-04-09 07:52] LABS: ABS Lymphocytes 0.6 10^3/ul (1.0-4.8); ABS Monocytes 0.4 10^3/ul (0-0.8); ABS Neutrophils 12.4 10^3/ul (1.5-7.7); Hematocrit 33 % (42-52); Hemoglobin 10.9 g/dL (14.0-18.0); Lymphocyte % 4.5 %; Mean Corpuscular HGB Conc 34 g/dL (31-36); Mean Corpuscular Hemoglobin 31 pg (27-31); Mean Corpuscular Volume 91 fL (80-94); Platelet Count 182 10^3/uL (150-450); Red Blood Count 3.57 10^6 /uL (4.18-5.48); Red Cell Distribution Width 13 % (10-15); White Blood Count 13.4 10^3/uL (3.5-10.8)
[2021-04-09 07:59] LABS: INR 1.03 (0.86-1.15)
[2021-04-09 08:09] LABS: Albumin 3.4 g/dL (3.2-5.2); Albumin/Globulin Ratio 1.1 (1-3); C Reactive Protein 185.03 mg/L (<8.01); Globulin 3.2 g/dL (2-4); Potassium 4.7 mmol/L (3.5-5.0); Total Bilirubin 0.3 mg/dL (0.2-1.0); Total Protein 6.6 g/dL (6.4-8.9); eGFR CKD-EPI 50.2 (>60)
[2021-04-09] MEDS: Enoxaparin 40 MG/0.4 ML SYR SUBCUT SCH (09:52)
[2021-04-09] MEDS: Remdesivir 100 mg Vial 100 MG in NS 0.9% 250 ml 230 ML IV SCH (10:01)
[2021-04-09] MEDS: Coenzyme Q10 CAP (NF) ** ENTER STREGNTH IN LABEL DIRECTIONS PO SCH (10:01)
[2021-04-10 06:32] LABS: Hematocrit 31 % (42-52); Hemoglobin 10.6 g/dL (14.0-18.0); Mean Corpuscular HGB Conc 34 g/dL (31-36); Mean Corpuscular Hemoglobin 31 pg (27-31); Mean Corpuscular Volume 91 fL (80-94); Mean Platelet Volume 9.7 fL (7.4-10.4); Platelet Count 200 10^3/uL (150-450); Red Blood Count 3.44 10^6 /uL (4.18-5.48); Red Cell Distribution Width 14 % (10-15); White Blood Count 10.3 10^3/uL (3.5-10.8)
[2021-04-10 07:04] LABS: Albumin 3.3 g/dL (3.2-5.2); Albumin/Globulin Ratio 1.1 (1-3); Potassium 4.7 mmol/L (3.5-5.0); Total Bilirubin 0.3 mg/dL (0.2-1.0); Total Protein 6.3 g/dL (6.4-8.9)
[2021-04-10] MEDS: Remdesivir 100 mg Vial 100 MG in NS 0.9% 250 ml 230 ML IV SCH (09:46)
[2021-04-10] MEDS: Enoxaparin 40 MG/0.4 ML SYR SUBCUT SCH (09:46)
[2021-04-10] MEDS: guaiFENesin/CODIENE 100mg/10mg 5 ML UDC PO PRN ×2 (12:31→18:31)
[2021-04-10 16:52] LABS: C Reactive Protein 95.99 mg/L (<8.01)
[2021-04-10 17:33] VITALS: BP 148/68
== END 2021-04-10 19:05 | disposition home or self-care (01) | DRG 177 ==
LOC: ED 01:03 → EDHOLD 03:41 → MED 08:18
PROVIDERS: ADMIT Hospitalist; ATTEND Hospitalist